=== PATIENT | female | born 1955 | race Caucasian/White ===

== ENCOUNTER 2019-10-24 09:25 | Outpatient (CLI) | payer OTHER, SELFPAY ==
--- NOTE | ~2019-10-24 | US_ITS ---
EXAMINATION: 1. US FNA additional 2. US FNA w image guidance DATE: 10/24/2019 10:59 INDICATION: Nontoxic multinodular goiter. TECHNIQUE: The procedure and its benefits, risks, and benefits were discussed with the patient. Risks specifical ly discussed included bleeding. The patient verbalized understanding of the risks and agreed to proce ed. The neck was prepped and draped in the usual sterile manner. 1% lidocaine was used for local ane sthesia. 5 passes were made with a 25G needle into the lesion in inferior right thyroid lobe. Appro priate needle location was documented with continuous sonographic guidance. 5 passes were made with a 25G needle into the lesion in superior right thyroid lobe. Appropriate nee dle location was documented with continuous sonographic guidance. There were no immediate complicatio ns. The patient understood to call the ordering physician for results after a week and a half and areli balized that understanding. FINDINGS: Grayscale ultrasound images demonstrate needles advanced into a 1.6 cm nodule in inferior right thyro id lobe for biopsy. Grayscale ultrasound images demonstrate needles advanced into a 1.8 cm nodule in superior right thyroid lobe IMPRESSION: 1. Ultrasound-guided fine needle aspiration of a nodule in inferior right thyroid lobe. 2. Ultrasound-guided fine-needle aspiration of a nodule in superior right thyroid lobe. Reviewed, dictated and finalized at location A. IMPRESSION: 1. Ultrasound-guided fine needle aspiration of a nodule in inferior right thyr oid lobe. 2. Ultrasound-guided fine-needle aspiration of a nodule in superior right thyro id lobe.
== END 2019-10-24 09:26 | disposition home or self-care (01) ==
LOC: ANHIMG 09:27
PROVIDERS: PCP Internal Medicine; Visit Provider Internal Medicine
DX: E04.2 Nontoxic multinodular goiter (principal)
CPT/HCPCS: 10005; 10006; 88173; 88305

== ENCOUNTER 2020-01-23 07:05 | Outpatient (NON) | payer OTHER, SELFPAY ==
[2020-01-24 00:19] LABS: SARS-CoV-2 RNA PCR Negative
== END 2020-01-23 07:06 ==
LOC: ANHCOVIDDT 07:21
PROVIDERS: PCP Internal Medicine; Visit Provider Internal Medicine
DX: Z20.828 Contact with and (suspected) exposure to other viral communicable diseases (principal); R09.89 Other specified symptoms and signs involving the circulatory and respiratory systems
CPT/HCPCS: 87635; C9803; U0003

== ENCOUNTER → 2020-10-08 02:53 | Outpatient (CLI) | payer OTHER, SELFPAY ==
[2020-10-08 20:12] LABS: SARS-CoV-2 RNA PCR Negative
== END ==
PROVIDERS: PCP Family Medicine; Visit Provider Family Medicine
DX: R05 Cough (principal); Z20.822 Contact with and (suspected) exposure to COVID-19
CPT/HCPCS: C9803; U0003; U0005

== ENCOUNTER 2021-12-07 12:34 | Emergency (ER) | payer MEDICARE, SELFPAY ==
--- NOTE | ~2021-12-07 | CT_ITS ---
EXAMINATION: CTA chest PE abdomen pel DATE: 12/07/2021 19:12 INDICATION: elevated ddimer, UPPER ABDOMINAL PAIN, ELEVATED LIPASE TECHNIQUE: Computed tomography angiography (CTA) of the chest was performed with 100 mL Omnipaque-350 intravenous contrast timed to evaluate the pulmonary arteries, followed by portal venous phase imagi ng of the abdomen and pelvis. Coronal maximum intensity projection 3D-reconstructions were created by the technologist. The dose-length product (DLP) was 714.15 mGy-cm. Automated exposure control and it erative reconstruction technique were employed. COMPARISON: None. FINDINGS: CHEST: Lung parenchyma and airways: Clear. Pleura: Unremarkable. Thoracic inlet, axillae and chest wall: Unremarkable. Thoracic aorta: Normal. Mediastinum: Normal. Heart and pericardium: Normal. Coronary artery calcifications: Absent. Thoracic bones: No acute osseous finding. Pulmonary arteries: Study quality: Adequate. No pulmonary emboli detected. ABDOMEN/PELVIS: Liver: Diffuse fatty infiltration as can be seen with steatosis.r Biliary/Gallbladder: Gallbladder is normal. No bile duct dilation. Pancreas: No mass or duct dilation. Spleen: Normal. Adrenals:No mass. Kidneys: No mass, stone, or hydronephrosis. GI tract: No small or large bowel dilation. Normal appendix. Diverticulosis without diverticulitis. Mesentery/Peritoneum: No ascites, mass, or free air. Retroperitoneum: No mass. Atherosclerotic abdominal aortic and/or arterial calcifications. Pelvis: Uterus absent. Mild wall thickening in a partially distended urinary bladder. Soft Tissues: Soft tissues and body wall unremarkable. Abdominopelvic bones: No acute osseous finding. IMPRESSION: No CT evidence of acute pulmonary embolus. No CT evidence of pancreatitis. Reviewed, dictated and finalized at location K.
--- NOTE | ~2021-12-07 | CT_ITS ---
EXAMINATION: CT brain wo con DATE: 12/07/2021 16:49 INDICATION: Headache . TECHNIQUE: Computed tomography (CT) of the head was performed without intravenous contrast. The mA wa s adjusted according to patient size. Iterative reconstruction technique was employed. The dose-lengt h product was 605.33 mGy-cm. COMPARISON: None FINDINGS: No acute intracranial hemorrhage or extra-axial fluid collection. No hydrocephalus, mass, or herniation. No acute ischemic infarct. Unremarkable dural venous sinus attenuation. No acute osseous abnormality. The aerated spaces are clear. Mild atrophy and chronic white matter change. Atherosclerotic intracranial calcification. Old left ba alek ganglia lacunar infarct versus prominent perivascular space. IMPRESSION: No acute intracranial process. Reviewed, dictated and finalized at location K.
--- NOTE | ~2021-12-07 | XR_ITS ---
EXAMINATION: XR chest 2V DATE: 12/07/2021 13:10 INDICATION: Central chest pain TECHNIQUE: Frontal and lateral views of the chest are obtained COMPARISON: None available FINDINGS: The lungs are free of acute opacities. No pleural effusion or pneumothorax. The cardiomedia stinal silhouette is normal. There is moderate thoracic spondylosis. IMPRESSION: 1. No acute cardiopulmonary abnormality. Reviewed, dictated and finalized at location A.
--- NOTE | 2021-12-07 12:35 | ECG_ITS ---
Measurements Intervals [place] Rate: 98 P: 39 MI: 148 QRS: -13 QRSD: 107 T: 27 QT: 348 QTc: 445 Interpretive Statements SINUS RHYTHM NORMAL ECG NO PREVIOUS ECG AVAILABLE FOR COMPARISON Electronically Signed On 12-07-2021 13:58:29 CDT by Silas Kennedy M.D.
[2021-12-07 12:45] VITALS: BP 134/72; PULSE 91; RESP 20; TEMP 36.9; O2SAT 100
[2021-12-07 13:09] LABS: Basophils Absolute Auto 0.1 K/mm3 (0.0-0.1); Basophils Percent Auto 0.8 % (0.2-1.2); Eosinophils Absolute Auto 0.2 K/mm3 (0-0.3); Eosinophils Percent Auto 2.6 % (0-4.4); Hematocrit 43.7 % (37.0-47.0); Hemoglobin 14.6 g/dL (12.0-15.0); Immature Granulocyte Absolute 0.07 K/mm3 (0.00-0.031); Immature Granulocyte Percent A 0.8 % (0-0.5); Lymphocytes Absolute Auto 2.69 K/mm3 (0.9-3.2); Lymphocytes Percent Auto 29.6 % (18.3-44.2); Mean Corpuscular HGB Conc 33.4 g/dl (32-36); Mean Corpuscular Hemoglobin 30.2 pg (26-34); Mean Corpuscular Volume 90.5 fl (80-100); Mean Platelet Volume 9.4 fl (7.4-10.4); Monocytes Absolute Auto 0.7 K/mm3 (0.1-0.6); Monocytes Percent Auto 7.6 % (2.6-8.5); Neutrophils Absolute Auto 5.3 K/mm3 (1.3-6.7); Neutrophils Percent Auto 58.6 % (45.5-73.1); Platelet Count Result 331 k/mm3 (150-375); Red Blood Count 4.83 M/mm3 (4.2-5.4); Red Cell Distribution Width 12.6 % (11.5-14.5); White Blood Count 9.1 K/mm3 (4.5-10.0)
[2021-12-07 13:19] LABS: Alanine Aminotransferase 26 U/L (6-35); Albumin Level 4.6 g/dL (3.5-5.1); Alkaline Phosphatase 92 U/L (38-126); Anion Gap 8 mmol/L (8-16); Aspartate Amino Transferase 29 U/L (14-36); Bilirubin,Total 0.3 mg/dL (0.2-1.3); Blood Urea Nitrogen 21 mg/dL (7-17); Calcium 9.2 mg/dL (8.4-10.2); Carbon Dioxide 27 mmol/L (22-30); Chloride 104 mmol/L (98-107); Estimated CRCL calculation 59 ml/min; Estimated Glomerular Filt Rate > 60; Glucose 96 mg/dL (65-110); Lipase 434 U/L (23-300); Partial Thromboplastin Time 31.4 SECONDS (22.3-36.8); Prothrombin Time 12.5 Seconds (11.1-14.7); Sodium 139 mmol/L (137-145)
[2021-12-07 13:31] LABS: Troponin I < 0.012 ng/mL (0.000-0.034)
[2021-12-07 16:08] VITALS: PULSE 84
--- NOTE | 2021-12-07 16:18 | ED.CHESTPAIN ---
HPI - Chest Pain General Chief Complaint: Chest Pain <Jacklyn Antonio MD - Last Filed: 12/07/21 18:59> Stated Complaint: barrios/pain across shoulders/gerd <Jacklyn Antonio MD - Last Filed: 12/07/21 18:59> Time Seen by Provider: 12/07/21 16:12 <Jacklyn Antonio MD - Last Filed: 12/07/21 18:59> Source: patient and RN notes reviewed <Jacklyn Antonio MD - Last Filed: 12/07/21 18:59> Mode of arrival: ambulatory <Jacklyn Antonio MD - Last Filed: 12/07/21 18:59> Limitations: no limitations <Jacklyn Antonio MD - Last Filed: 12/07/21 18:59> History of Present Illness HPI narrative: 66 years old white female brought to the emergency room by private car from home complaining of headache, dizziness, upper back pain and upper chest pain bilaterally, hard to breathe sometime, today even moving her eyes make her feel off.. Patient retired in June 2021, been playing [employer] and [employer] lately. History of breast cancer. Patient is a smoker, drinks occasionally, does not use drugs <Jacklyn Antonio MD - Last Filed: 12/07/21 18:59> Related Data Home Medications: Home Medications Medication Instructions Recorded Confirmed aspirin 81 mg tablet,delayed 81 mg PO DAILY 08/11/20 08/11/20 release (Adult Low Dose Aspirin) esomeprazole magnesium 40 mg 40 mg PO DAILY 08/11/20 08/11/20 capsule,delayed release (Nexium) multivitamin 1 tablet PO DAILY 08/11/20 08/11/20 <Jacklyn Antonio MD - Last Filed: 12/07/21 18:59> Allergies/Adverse Reactions: Allergies Allergy/AdvReac Type Severity Reaction Status Date / Time No Known Allergies Allergy Verified 08/11/20 08:45 <Jacklyn Antonio MD - Last Filed: 12/07/21 18:59> Review of Systems Review of Systems: All systems reviewed & are unremarkable except as noted in HPI and below <aJcklyn Antonio MD - Last Filed: 12/07/21 18:59> PMFSH Past Medical History Medical History: Medical History Anxiety Degenerative disc disease, cervical GERD (gastroesophageal reflux disease) Malignant neoplasm of upper-outer quadrant of right breast, estrogen receptor positive Multinodular goiter <Jacklyn Antonio MD - Last Filed: 12/07/21 18:59> Surgical History Surgical History: Surgical History H/O foot surgery both feet bone spurs H/O lumpectomy 2011 S/P BRETT-BSO <Jacklyn Antonio MD - Last Filed: 12/07/21 18:59> Family History Family History: Family History Mother Family history of blood dyscrasia Hypertension Family history of anemia Family history of Alzheimer's disease Family history of lung disease Father Family history of drug dependence Depression Family history of cataracts Malignant neoplasm of prostate Family history of diabetes mellitus in first degree relative Diabetes mellitus Hypertension Heart disease Sibling Depression Heart disease Alcoholism Other Family history of chronic obstructive pulmonary disease Family history of coronary artery disease <Jacklyn Antonio MD - Last Filed: 12/07/21 18:59> Social History Social History: Social History Smoking status: Current every day smoker Second hand tobacco smoke exposure: Yes Alcohol intake: current Alcohol use details: socially/beer Substance use: never Substance use type: does not use Gender identity (if verbalized by the patient): Female Spiritual care concerns: No Agree to blood products: Yes <Jacklyn Antonio MD - Last Filed: 12/07/21 18:59> Exam Narrative: General appearance: Well-developed, well-nourished Skin: Normal color Head: Normocephalic, nontraumatic Eyes: Clear conjunctiva ENT: Oropharynx normal, ears normal, nose normal Neck: Supple, nontender Chest and respiratory: Airway patent, no respiratory distress,
[2021-12-07 16:36] LABS: Troponin I < 0.012 ng/mL (0.000-0.034)
--- NOTE | 2021-12-07 16:56 | PCRCNOTE ---
Patient refused MD AMBER notified.
[2021-12-07 17:17] LABS: Creatine Kinase 161 U/L (30-135)
[2021-12-07 17:50] VITALS: BP 138/90; PULSE 78; RESP 16; O2SAT 98
--- NOTE | 2021-12-07 17:55 | PC.NURSE ---
no aspirin dose needed per erp
[2021-12-07 18:01] LABS: Erythrocyte Sedimentation Rate 30 mm/hr (0-20)
[2021-12-07 18:09] LABS: D Dimer 0.55 ug/mL (<0.48)
[2021-12-07 18:55] LABS: Troponin I < 0.012 ng/mL (0.000-0.034)
[2021-12-07 19:22] LABS: SARS-CoV-2 RNA PCR Negative
[2021-12-07 19:58] VITALS: BP 128/79; PULSE 84; RESP 18; O2SAT 97
== END 2021-12-07 20:06 | disposition home or self-care (01) ==
PROVIDERS: Emergency Medicine; Emergency Provider Preventive Medicine Aerospace Medicine
DX: R51.9 Headache, unspecified (principal); M54.6 Pain in thoracic spine; R74.8 Abnormal levels of other serum enzymes; Z20.822 Contact with and (suspected) exposure to COVID-19; K21.9 Gastro-esophageal reflux disease without esophagitis; Z85.3 Personal history of malignant neoplasm of breast; Z79.82 Long term (current) use of aspirin; F17.200 Nicotine dependence, unspecified, uncomplicated; R07.9 Chest pain, unspecified
CPT/HCPCS: 36415; 70450; 71046; 71275; 74177; 80053; 82550; 83690; 84484; 85025; 85380; 85610; 85652; 85730; 93005; 99284; C9803; Q9967; U0003; U0005

== ENCOUNTER → 2022-02-08 09:52 | Outpatient (CLI) | payer MEDICARE, SELFPAY ==
--- NOTE | ~2022-02-08 | MR_ITS ---
MRI of the cervical spine Clinical History: Pain Technique: Axial T2-weighted and gradient images, and sagittal T1-weighted, T2-weighted, and STIR toñito ges were acquired. Findings: There is no fracture or subluxation of the cervical spine. Vertebral bodies maintain normal height and alignment. No focal bone marrow signal abnormality seen. At C2-C3 and C3-C4, there is no disc bulge or herniation. No spinal canal stenosis, cord compression, or neural foraminal narrowing at these levels. At C4-C5, there is no disc bulge or herniation. There is probable minimal left neural foraminal narro wing. No spinal canal stenosis, cord compression, or right neural foraminal narrowing. At C5-C6, there is minimal disc osteophyte complex. There is no spinal canal stenosis, cord compressi on, or definite neural foraminal narrowing. At C6-C7, there is minimal disc osteophyte complex. No spinal canal stenosis, cord compression, or de finite neural foraminal narrowing. Paravertebral soft tissues are unremarkable. No prevertebral soft tissue swelling. No abnormal signal in the spinal cord. Impression: Minimal degenerative change, as above. Probable minimal left neural foraminal narrowing at C4-C5. Reviewed, dictated and finalized at location . GER [employer] HOU[employer]KEEPING Impression: Minimal degenerative change, as above. Probable minimal left neural foraminal n arrowing at C4-C5.
== END ==
PROVIDERS: PCP Family Medicine; Visit Provider Nurse Practitioner Adult Health
DX: M54.2 Cervicalgia (principal)
CPT/HCPCS: 72141

== ENCOUNTER 2022-03-16 12:13 | Outpatient (CLI) | payer MEDICARE, SELFPAY ==
--- NOTE | ~2022-03-16 | US_ITS ---
Duplex Sonography of the right extremity: Indication: Soft tissue disorder, swelling Findings: Sagittal and transverse B-mode images as well as color-flow imaging were performed on the r ight femoral and popliteal veins. B-mode examination was done without and with compression in the tr ansverse plane. There is good visualization of the common femoral, proximal profunda femoral, superf icial femoral, greater saphenous, and popliteal veins. Normal flow was seen on color-flow imaging. N ormal compressibility was demonstrated. Posterior tibial and peroneal veins are also patent. Impression: No evidence of deep vein thrombosis involving the right lower extremity. Reviewed, dictated and finalized at location M. D ENGINEERING TECHNICIAN Impression: No evidence of deep vein thrombosis involving the right lower extremity.
== END 2022-03-16 12:14 | disposition home or self-care (01) ==
PROVIDERS: PCP Family Medicine; Visit Provider Physician Assistant Medical
DX: M79.89 Other specified soft tissue disorders (principal)
CPT/HCPCS: 93971

== ENCOUNTER → 2022-03-21 09:29 | Outpatient (CLI) | payer MEDICARE, SELFPAY ==
--- NOTE | ~2022-03-21 | US_ITS ---
EXAMINATION: US thyroid DATE: 03/21/2022 09:48 INDICATION: Nontoxic single thyroid nodule. TECHNIQUE: Multiple ultrasound images of the thyroid were obtained. COMPARISON: Ultrasound 10/13/2019, 10/24/2019 FINDINGS: The right thyroid lobe measures 5.8 x 2.5 x 2.2 cm. The left thyroid lobe measures 4.6 x 1.7 x 1.6 c m. In the left thyroid lobe, there is an 8 mm solid, hypoechoic, wider than tall nodule with irregul ar margin without echogenic foci (TI-RADS TR4). In the left thyroid lobe, there is a 5 mm solid, hypo echoic, wider than tall nodule with smooth margin without echogenic foci (TR4). In the right thyroid lobe, there is a 1.5 cm solid, hypoechoic, wider than tall nodule with irregular margin without echog enic foci (TR4), stable from 10/13/19. In the right thyroid lobe, there is a 1.8 cm solid, hypoechoic, wider than tall nodule with smooth margin without echogenic foci (TR4), stable from 10/13/19. Biopsy on 10/24/19 was benign. In the right thyroid lobe, there is a 1.9 cm predominance solid, hypoechoic, wi paloma than tall nodule with smooth margin without echogenic foci (TR4), stable from 10/13/19. Biopsy on 10/24/19 was benign. IMPRESSION: 1. Stable multinodular goiter. Reviewed, dictated and finalized at location A. S GLAZIER
== END ==
PROVIDERS: PCP Family Medicine; Visit Provider Physician Assistant Medical
DX: E04.2 Nontoxic multinodular goiter (principal)
CPT/HCPCS: 76536

== ENCOUNTER 2022-03-27 07:44 | Day surgery (SDC) | payer MEDICARE, SELFPAY ==
[2022-03-14 09:33] VITALS: BMI 29.2
--- NOTE | 2022-03-24 14:22 | PM.HPGS ---
History of Present Illness History of Present Illness Consent: Risks, benefits, and alternatives have been discussed and questions answered. Patient agrees to proceed with procedure. Chief complaint: Mart's Esophagus, Neoplasm Screening Narrative: Digna Healy is a 66 year old female with history of Mart's esophagus. She underwent RFA in 2013. A follow up several months later showed no residual Mart's mucosa. Is due for colon cancer screen. Review of Systems Review of Systems: All systems reviewed & are unremarkable except as noted in HPI and below PMFSH Past Medical History Medical History (Updated 03/27/22 @ 08:49 by Seth Benjamin MD) Anxiety Mart's esophagus with dysplasia Cervical spondylosis Cervical spondylosis Contact dermatitis Degenerative disc disease, cervical GERD (gastroesophageal reflux disease) Malignant neoplasm of upper-outer quadrant of right breast, estrogen receptor positive Multinodular goiter Neck pain Rash Surgical History Surgical History H/O foot surgery both feet bone spurs H/O lumpectomy 2011 S/P BRETT-BSO Family History Family History Mother Family history of blood dyscrasia Hypertension Family history of anemia Family history of Alzheimer's disease Family history of lung disease Father Family history of drug dependence Depression Family history of cataracts Malignant neoplasm of prostate Family history of diabetes mellitus in first degree relative Diabetes mellitus Hypertension Heart disease Sibling Depression Heart disease Alcoholism Other Family history of chronic obstructive pulmonary disease Family history of coronary artery disease Social History Social History Smoking packs per day: 0.5 Smoking cigarettes per day: 10.0 Years smoked: 30 Smoking pack-years: 15.00 Smoking status: Current every day smoker Tobacco type: cigarettes Second hand tobacco smoke exposure: Yes Alcohol intake: current Alcohol use details: socially/beer Substance use: never Substance use type: does not use Living arrangements: alone Occupation/Education: retired Gender identity (if verbalized by the patient): Female Sexual Orientation (if Verbalized by the Patient): Straight or Heterosexual Spiritual care concerns: No Agree to blood products: Yes Meds Home Medications and Allergies Home Medications Medication Instructions Recorded Confirmed Type esomeprazole magnesium 40 mg 40 mg PO DAILY 08/11/20 03/27/22 History capsule,delayed release (Nexium) multivitamin 1 tablet PO DAILY 08/11/20 03/27/22 History aspirin 81 mg tablet,delayed 81 mg PO DAILY 03/14/22 03/27/22 History release (Adult Low Dose Aspirin) multivit,Ca,iron,[id number]-[id number]-RPWN 1 cap PO DAILY 03/14/22 03/27/22 History 3 mg-133 mcg capsule (Body, Hair, Skin and Nails) omega 3-dha 120 mg-epa 180 mg-fish 1 cap PO DAILY 03/14/22 03/27/22 History oil 600 mg capsule (Extreme [place]-3) citalopram 40 mg tablet 40 mg PO DAILY #90 tabs 03/16/22 03/27/22 Rx furosemide 20 mg tablet 20 mg PO QAM #7 tabs 03/16/22 03/27/22 Rx varenicline 1 mg tablet (Chantix 1 mg PO BID #56 tabs 03/16/22 03/27/22 Rx Continuing Month Box) Allergies Allergy/AdvReac Type Severity Reaction Status Date / Time No Known Allergies Allergy Verified 03/27/22 08:06 Exam Const: General: alert Orientation/consciousness: patient oriented x3 Resp: Auscultation: clear to auscultation bilaterally Cardio: Rhythm: regular rhythm GI: GI Palp: Yes Soft to palpation and No Tenderness to palpation present (GI) Neuro: General: patient oriented x3 Assessment and Plan Assessment and plan (1) Mart's esophagus with dysplasia: Code(s): K22.719 - Mart's esophagus with dys
--- NOTE | 2022-03-27 07:19 | WPDANESEPPF ---
Anes - Initial Pre Proc Eval Procedure: Operation Date: 03/27/22 09:30 Proposed Procedures p Esophagogastroduodenoscopy - Seth Benjamin MD s Screening Colonoscopy - Seth Benjamin MD Date/Time: 03/27/22 07:19 Surgeon: Seth Benjamin MD Pre Op Diagnosis: Mart's Esophagus, Neoplasm Screening Patient Data Age: 66 Gender: F Height: 1.52 m Weight: 68 kg Allergies Allergy/AdvReac Type Severity Reaction Status Date / Time No Known Allergies Allergy Verified 03/27/22 08:06 Home Medications Medication Instructions Recorded Confirmed Type esomeprazole magnesium 40 mg 40 mg PO DAILY 08/11/20 03/14/22 History capsule,delayed release (Nexium) multivitamin 1 tablet PO DAILY 08/11/20 03/14/22 History aspirin 81 mg tablet,delayed 81 mg PO DAILY 03/14/22 03/14/22 History release (Adult Low Dose Aspirin) multivit,Ca,iron,[id number]-PDXA 1 cap PO DAILY 03/14/22 03/14/22 History 3 mg-133 mcg capsule (Body, Hair, Skin and Nails) omega 3-dha 120 mg-epa 180 mg-fish 1 cap PO DAILY 03/14/22 03/14/22 History oil 600 mg capsule (Extreme [place]-3) citalopram 40 mg tablet 40 mg PO DAILY #90 tabs 03/16/22 Rx furosemide 20 mg tablet 20 mg PO QAM #7 tabs 03/16/22 Rx varenicline 1 mg tablet (Chantix 1 mg PO BID #56 tabs 03/16/22 Rx Continuing Month Box) Patient hx anesthesia problems: none Family hx anesthesia problems: none Results Review: All pre-operative results and documents have been reviewed as part of the pre-operative evaluation. [facility] Past Medical History Medical History (Updated 03/27/22 @ 08:49 by Steh Benjamin MD) Anxiety Mart's esophagus with dysplasia Cervical spondylosis Cervical spondylosis Contact dermatitis Degenerative disc disease, cervical GERD (gastroesophageal reflux disease) Malignant neoplasm of upper-outer quadrant of right breast, estrogen receptor positive Multinodular goiter Neck pain Rash Surgical History Surgical History H/O foot surgery both feet bone spurs H/O lumpectomy 2011 S/P BRETT-BSO Family History Family History Mother Family history of blood dyscrasia Hypertension Family history of anemia Family history of Alzheimer's disease Family history of lung disease Father Family history of drug dependence Depression Family history of cataracts Malignant neoplasm of prostate Family history of diabetes mellitus in first degree relative Diabetes mellitus Hypertension Heart disease Sibling Depression Heart disease Alcoholism Other Family history of chronic obstructive pulmonary disease Family history of coronary artery disease Social History Social History Smoking packs per day: 0.5 Smoking cigarettes per day: 10.0 Years smoked: 30 Smoking pack-years: 15.00 Smoking status: Current every day smoker Tobacco type: cigarettes Second hand tobacco smoke exposure: Yes Alcohol intake: current Alcohol use details: socially/beer Substance use: never Substance use type: does not use Living arrangements: alone Occupation/Education: retired Gender identity (if verbalized by the patient): Female Sexual Orientation (if Verbalized by the Patient): Straight or Heterosexual Spiritual care concerns: No Agree to blood products: Yes Anes - Eval Final PreProcedure Day of Procedure 03/27/22 07:19 Patient weight: overweight Heart: regular rate and rhythm Lungs: clear to auscultation Airway: Mallampati scale class II Neurological: alert and oriented Last oral intake: >/= 8 hours ASA classification: III Emergent: no Anesthetic plan: proceed Anesthesia type and monitoring: general GIVS and standard monitoring Results Review: All pre-operative results and documents have been reviewed as part of the pre-operati
[2022-03-27 08:00] VITALS: BP 118/68; PULSE 98; RESP 14; TEMP 36.4; O2SAT 99
[2022-03-27] MEDS: LACTATED RINGERS 1,000 ML 150 ML IV CONT (08:25)
[2022-03-27 09:48] VITALS: BP 110/80; PULSE 79; RESP 14; O2SAT 99
[2022-03-27 09:58] VITALS: BP 104/63; PULSE 80; RESP 16; O2SAT 99
[2022-03-27 10:08] VITALS: BP 115/70; PULSE 79; RESP 18; O2SAT 98
[2022-03-27 10:17] VITALS: BP 116/68; PULSE 79; RESP 18; O2SAT 99
--- NOTE | 2022-03-27 12:03 | WPDANESPN ---
Anes - Prog Note Post-Op Date/Time: 03/27/22 12:03 Cardiovascular status: normal Respiratory status: normal Airway patency: baseline Mental status: baseline Post-Op hydration status: normal Vital Signs: Last Vital Signs Temp 36.4 C 03/27/22 08:00 Pulse 79 03/27/22 10:17 Resp 18 03/27/22 10:17 BP 116/68 03/27/22 10:17 Pulse Ox 99 03/27/22 10:17 O2 Del Method Room Air 03/27/22 10:17 Pain Score (VAS): 0 I/O: Intake & Output 03/26/22 03/27/22 03/27/22 23:59 07:59 15:59 Intake Total 600 Balance 600 Post-procedural complaints: none Patient Feedback: Patient satisfied with anesthetic care. Other Findings: Patient vital signs back to baseline. Patient denies nausea and vomiting. Patient's pain under control. Patient OK for discharge.
== END 2022-03-27 10:41 | disposition home or self-care (01) ==
PROVIDERS: PCP Family Medicine; Visit Provider Internal Medicine Gastroenterology
PROC: 0DJ08ZZ Inspection of Upper Intestinal Tract, Via Natural or Artificial Opening Endoscopic (ICD-10-PCS; CPT 43235; principal; 2022-03-27 09:30)
PROC: 0DJD8ZZ Inspection of Lower Intestinal Tract, Via Natural or Artificial Opening Endoscopic (ICD-10-PCS; CPT 45378; 2022-03-27 09:30)
DX: Z12.11 Encounter for screening for malignant neoplasm of colon (principal)
CPT/HCPCS: 45380; 43239

== ENCOUNTER 2022-03-27 09:00 | Outpatient (NON) | payer MEDICARE, SELFPAY | END 2022-03-27 09:01 | disposition home or self-care (01) | LOC: ANHLAB 03-28 09:44 | PROVIDERS: PCP Family Medicine; Visit Provider Internal Medicine Gastroenterology | DX: K22.719 Barrett's esophagus with dysplasia, unspecified (principal) | CPT/HCPCS: 88305 ==

== ENCOUNTER → 2022-09-20 14:18 | Outpatient (CLI) | payer MEDICARE, SELFPAY ==
--- NOTE | ~2022-09-20 | MM_ITS ---
EXAMINATION: MM screening [facility] BI w niall HISTORY: Screening mammogram TECHNIQUE: Craniocaudal and mediolateral oblique 3-D tomosynthesis images were obtained and synthetic 2-D images were generated. CAD analysis was submitted and interpreted. COMPARISON: No prior mammogram is available for comparison at this institution. BREAST PARENCHYMAL COMPOSITION: There are scattered areas of fibroglandular density. FINDINGS: There is architectural distortion and retraction at the upper outer left breast likely rela dilma to history of partial left mastectomy for breast cancer. No prior radiographs are available for c omparison. Otherwise no suspicious mass, architectural distortion, microcalcifications, skin thickeni ng or retraction is noted. IMPRESSION: 1. Status post left partial mastectomy with residual scarring retraction, upper outer quadrant. No ma mmographic evidence of malignancy. 2. Recommend routine screening mammography in one year. BI-RADS Category 2: Benign finding(s). Reviewed, dictated and finalized at location A. IMPRESSION: 1. Status post left partial mastectomy with residual scarring retraction, upper outer quadrant. No mammographic evidence of malignancy. 2. Recommend routine screening mammography in one year. BI-RADS Category 2: Benign finding(s).
== END ==
PROVIDERS: PCP Physician Assistant Medical; Visit Provider Physician Assistant Medical
DX: Z12.31 Encounter for screening mammogram for malignant neoplasm of breast (principal); Z85.3 Personal history of malignant neoplasm of breast; Z90.12 Acquired absence of left breast and nipple
CPT/HCPCS: 77063; 77067

== ENCOUNTER 2023-04-12 09:48 | Outpatient (CLI) | payer MEDICARE, SELFPAY ==
--- NOTE | ~2023-04-12 | CT_ITS ---
CT Scan of the Chest without Contrast: Clinical Indication: Lung cancer screening, personal history of nicotine dependence Technique: Contiguous sections were acquired throughout the chest without intravenous contrast. Dose reduction technique was used on this scan by utilizing automated exposure control and iterative recon struction technique. The dose-length product (DLP) was 96.63 mGy-cm. COMPARISON: 12/07/2021 Findings: There is no evidence of any significant mediastinal, hilar or axillary lymphadenopathy. The mediastin al soft tissues appear normal. There is no evidence of pleural or pericardial effusion. 5 mm groundglass nodule in the right lower lobe is similar to prior exam. Images through the upper abdomen reveal diffuse fatty infiltration of the liver. Impression: Lung RADS 2: Benign appearance. 12 month follow-up screening CT advised. Reviewed, dictated and finalized at [facility]. TER ENGINEERING Impression: Lung RADS 2: Benign appearance. 12 month follow-up screening CT advised.
== END 2023-04-12 09:49 | disposition home or self-care (01) ==
PROVIDERS: PCP Physician Assistant Medical; Visit Provider Physician Assistant Medical
DX: Z12.2 Encounter for screening for malignant neoplasm of respiratory organs (principal); Z87.891 Personal history of nicotine dependence
CPT/HCPCS: 71271

== ENCOUNTER 2023-04-25 14:19 | Outpatient (CLI) | payer MEDICARE, SELFPAY ==
--- NOTE | ~2023-04-25 | DEXA_ITS ---
Bone Density Report Name: TATIANA HAHN Age: 67 Sex: Female Ethnicity: White Date of : 1955 Indication: postmenopausal; screening for osteoporosis; hysterectomy; Referring Provider: TOSIN BAXTER Study: Bone densitometry was performed. Exam Date: April 25, 2023 Accession number: [id number] Bone Density: Region BMD T-score Z-score Classification AP Spine (L1-L4) 0.809 -2.2 -0.3 Osteopenia Femoral Neck (Left) 0.588 -2.4 -0.8 Osteopenia Total Hip (Left) 0.713 -1.9 -0.6 Osteopenia Femoral Neck (Right) 0.590 -2.3 -0.7 Osteopenia Total Hip (Right) 0.735 -1.7 -0.4 Osteopenia Total Hip Mean 0.724 -1.8 -0.5 Osteopenia World Health Organization criteria for BMD impression classify patients as: Normal (T-score at or above -1.0), Osteopenia (T-score between -1.0 and -2.5), or Osteoporosis (T-score at or below -2.5). 10-year Fracture Risk(1): Major Osteoporotic Fracture 13% Hip Fracture 3.9% Reported Risk Factors: [place] (), Neck BMD=0.588, BMI=31.2, smoking (1) FRAX(R) Version 3.08. Fracture probability calculated for an untreated patient. Fracture probability may be lower if the patient has received treatment. Clinical Information Provided by Patient: Smokes Has the following medical conditions: Hysterectomy, breast cancer 2011 Patient maximum height was 60.13 Menopause Age: 48 Does not regularly consume dairy products Drinks caffeinated beverages Onset of menses at age 11 Number of children 2 Impression: The patient has low bone mass, based on the Left Femoral Neck T-score. The patient has an estimated ten-year risk of hip fracture of 3.9% and an estimated ten-year risk of major fracture of 13%, based on the WHO FRAX algorithm. The patient has risk factors, including: smoking. Discussion: BONE DENSITY IS LOW AT ONE OR MORE SKELETAL SITES. THE PATIENT'S BMD AND CLINICAL RISK FACTORS CONTRIBUTE TO THIS PATIENT'S INCREASED RISK OF FRACTURE. This patient's lowest T-score is low at one or more skeletal sites. It meets the World Health Organization's (WHO) criteria for ?low bone mass? (T-score between -1.0 and -2.5). The patient's 10-year risk of hip fracture as calculated by FRAX exceeds the threshold where pharmacological therapy is recommended by the National Osteoporosis Foundation (NOF). However, all treatment decisions require clinical judgment and consideration of individual patient factors, including patient preferences, comorbidities, previous drug use, risk factors not captured in the FRAX model (e.g., frailty, falls, vitamin D deficiency, increased bone turnover, interval significant decline in bone density) and possible under or overestimation of fracture risk by FRAX. The patient should follow a healthful lifestyle (good nutrition with adequate calcium and vitamin D, a
== END 2023-04-25 14:20 ==
LOC: MICIMG 14:20
PROVIDERS: PCP Physician Assistant Medical; Visit Provider Physician Assistant Medical
DX: E28.39 Other primary ovarian failure (principal); M85.89 Other specified disorders of bone density and structure, multiple sites; Z78.0 Asymptomatic menopausal state
CPT/HCPCS: 77080

== ENCOUNTER 2023-09-24 13:59 | Outpatient (CLI) | payer MEDICARE, SELFPAY ==
--- NOTE | ~2023-09-24 | MR_ITS ---
EXAMINATION: MRA neck wo/w con DATE: 09/24/2023 15:15 INDICATION: Dizziness and giddiness. TECHNIQUE: Magnetic resonance angiography (MRA) of the neck was performed without and with 14 mL Mult iHance intravenous contrast. COMPARISON: None. FINDINGS: The vertebral arteries are codominant. The vertebral arteries are not well evaluated proximally. Ther e is no significant stenosis of the vertebral arteries. There is 0% stenosis of the proximal right in ternal carotid artery relative to normal distal artery lumen diameter (NASCET criteria). There is 0% stenosis of the proximal left internal carotid artery relative to normal distal artery lumen diamete r. IMPRESSION: 1. 0% stenosis of the proximal internal carotid arteries relative to normal distal artery lumen diame ters (NASCET criteria). Reviewed, dictated and finalized at location A. IMPRESSION: 1. 0% stenosis of the proximal internal carotid arteries relative to normal dis mariya artery lumen diameters (NASCET criteria).
--- NOTE | ~2023-09-24 | MR_ITS ---
EXAMINATION: MR brain/brain stem wo/w con DATE: 09/24/2023 15:11 INDICATION: Dizziness and giddiness. TECHNIQUE: Magnetic resonance imaging (MRI) of the brain and brainstem was performed without and with 14 mL MultiHance intravenous contrast. COMPARISON: None. FINDINGS: There are scattered areas of nonspecific increased T2-weighted signal intensity in the cere bral white matter. There is no intracranial hemorrhage, acute infarction, or abnormal intracranial ma ss lesion. The ventricles are normal in size. The paranasal sinuses are clear. There are likely ng es of ocular lens replacement surgeries. The mastoid air cells are normal. IMPRESSION: 1. Mild nonspecific cerebral white matter disease, which likely represents chronic small vessel ische aubrie disease. Reviewed, dictated and finalized at location A. IMPRESSION: 1. Mild nonspecific cerebral white matter disease, which likely represents form coverer blanca small vessel ischemic disease.
== END 2023-09-24 14:00 ==
LOC: MICIMG 14:00
PROVIDERS: PCP Physician Assistant Medical; Visit Provider Physician Assistant Medical
DX: R42 Dizziness and giddiness (principal); R20.2 Paresthesia of skin; R51.9 Headache, unspecified
CPT/HCPCS: 70549; 70553; A9577

== ENCOUNTER 2024-01-21 14:37 | Outpatient (CLI) | payer MEDICARE, SELFPAY ==
--- NOTE | ~2024-01-21 | MM_ITS ---
EXAMINATION: MM screening [facility] BI w niall HISTORY: Screening TECHNIQUE: Craniocaudal and mediolateral oblique 3-D tomosynthesis images were obtained and synthetic 2-D images were generated. CAD analysis was submitted and interpreted. COMPARISON: 09/20/2022 BREAST PARENCHYMAL COMPOSITION: Not dense: There are scattered areas of fibroglandular density. FINDINGS: There is distortion in the left breast consistent with previous lumpectomy. There is no anthony dence of suspicious mass, calcification, or architectural distortion to suggest malignancy in either breast. There has been no suspicious interval change. IMPRESSION: 1. No mammographic evidence of malignancy. 2. Recommend routine screening mammography in one year. BI-RADS Category 2: Benign finding(s). Reviewed, dictated and finalized at location B. SFORMATION LEAD
== END 2024-01-21 14:38 | disposition home or self-care (01) ==
LOC: MICIMG 14:38
PROVIDERS: PCP Physician Assistant Medical; Visit Provider Physician Assistant Medical
DX: Z12.31 Encounter for screening mammogram for malignant neoplasm of breast (principal)
CPT/HCPCS: 77063; 77067

== ENCOUNTER 2024-04-14 10:00 | Outpatient (CLI) | payer MEDICARE, SELFPAY ==
--- NOTE | ~2024-04-14 | CT_ITS ---
CT Scan of the Chest without Contrast: Clinical Indication: Lung cancer screening, nicotine dependence Technique: Contiguous sections were acquired throughout the chest without intravenous contrast. Dose reduction technique was used on this scan by utilizing automated exposure control and iterative recon struction technique. The dose-length product (DLP) was 72.94 mGy-cm. COMPARISON: 04/12/2023 Findings: There is no evidence of any significant mediastinal, hilar or axillary lymphadenopathy. The mediastin al soft tissues appear normal. There is no evidence of pleural or pericardial effusion. 9 mm groundglass nodule in the right lower lobe is mildly increased from prior exam (axial image 49). Images through the upper abdomen reveal diffuse fatty infiltration of the liver. Impression: Lung RADS 2: Benign appearance. 12 month follow-up screening CT advised. Reviewed, dictated and finalized at [facility]. S DEVELOPMENT DIRECTOR Impression: Lung RADS 2: Benign appearance. 12 month follow-up screening CT advised.
--- OUTSIDE RECORDS SUMMARY | 2024-04-14 11:10 | XMS_ITS | Clinical Summary ---
Author Organization [facility] [place] Address [address] [place] [address] Phone Care Team Providers Care Dryer Operator Name Role Phone Jay Peraza MD Primary Care Provider Allergies Active Allergy Reactions Criticality Noted Date Comments Nickel Swelling,Other (See Comments) Low 01/29/2020 Sulfamethoxazole-Trimethop rim Itching,Other (See Comments) Low 01/29/2020 Medications esomeprazole (NEXIUM) 40 mg Oral CpDRIndications: Abnormal mammogram,Breast mass Take 40 mg by mouth daily before breakfast. Active aspirin (HAROON) 81 mg Oral TabIndications:A bnormal mammogram,Breast mass Take by mouth. Active citalopram (CELEXA) 20 mg Oral tablet Take 1 Tab by mouth daily. Active MULTIVIT &MINERALS/FERROU S FUM (MULTI VITAMIN ORAL)Indications :Breast cancer, left (CMS/HCC),Aromat ase inhibitor-associ ated arthralgia,Osteo penia Take by mouth. Active varenicline (Chantix) 1 mg Tablet Take 1 mg by mouth. 10/22/2019 Active Active Problems Patient Care Coordination No te Formatting of this note migh t be different from the original. Primary Care: Jay Peraza MD Referring Provider: Divine Culp MD [address] [place] [address] Other: Problem Noted Date Diagnosed Date Open wound of left breast 01/29/2020 Abscess of left breast 01/08/2020 Abnormality of right breast on screening mammogr am 01/08/2020 S/P BRETT-BSO 12/04/2011 Overview (12/04/2011): Fibroids Breast cancer Stage I ( T1c N0 Mx) IDC LEFT breast ER 8/8 TN 8/8 HER2/israel - Ki67 21% 10/11/2011 Overview (12/06/2012): 10/06/11 Stage I ( T1c N0 Mx) IDC LEFT breast ER 8/8 TN 8/8 HER2/israel - Ki67 21% S/p lumpectomy and SLND 1.6CM AND 0.4CM grade 2 0;3LN ONCOTYPE 8% (Recurrence Score 12) S/p Radiation (brachy) 12/04/11 FEMARA Assessment & Plan (12/06/2012 9:25 AM CDT): mammo and dexa today 1 years out Joint pain On ai Assessment & Plan (06/05/2012 3:06 PM CDT): On AI ROV 6 months mammo Oct BMD never - order Assessment & Plan (12/04/2011 9:19 AM CDT): POSTmeno BRETT/BSo IOV with daughter Chiara Abn mammo seeign Cory today for f/u FEMARA today Oncotype Weds BMD ordered ([facility]) Acid reflux Bulging disc Mart esophagus Family History Medical History Relation Name Comments Healthy Daughter Prostate Cancer Father 79 age 79y Colon Cancer Maternal Aunt 1 Breast Cancer Maternal Aunt 2 b/l mast Breast Cancer Maternal Cousin 1 dx 2011 b/l mast Breast Cancer Maternal Cousin 2 dx in her early 30's Breast Cancer Maternal Cousin 3 dx in her 30's Breast Cancer Maternal Cousin 4 Breast Cancer Maternal Cousin 5 Pancreatic Cancer Maternal Uncle COPD Mother dementia alive age 87y Dementia Mother dementia Healthy Son Ovarian Cancer Neg Hx Relation Name Status Comments Daughter Alive Father 79 Maternal Aunt 1 Maternal Aunt 2 Maternal Cousin 1 dx 2011 Maternal Cousin 2 Maternal Cousin 3 Maternal Cousin 4 Maternal Cousin 5 Maternal Uncle Mother dementia Alive Son Alive Social History Tobacco Use Types Packs/Day Years Used Date Smoking Tobacco: Every Day Cigarettes 1 40 Started: 11/20/1971; Last attempted to quit: 11/20/2011 Smokeless Tobacco: Never Tobacco Cessation:Counseling Given: No Alcohol Use Standard Drinks/Week Comments Yes 0 (1 standard drink = 0.6 oz pur e alcohol) rare Comments No Sex and Gender Information Value Date Recorded Sex Assigned at Not on file Legal Sex Female 6:10 AM FINISHER DENTURE Gender Identity Not on file Sexual Orientation Not on file 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 on file Not on file Last Filed Vital Signs Vital Sign Reading Time Taken Comments Blood Pressure 108/68 01/04/2021 11:50 AM FINISHER DENTURE Pulse 95 01/30/2020 6:11 PM FINISHER DENTURE Temperature 36.4 C (97.5 F) 01/30/2020 6:11 PM FINISHER DENTURE Respiratory Rate 16 01/30/2020 6:11 PM FINISHER DENTURE Oxygen Saturation 94% 01/30/2020 6:11 PM FINISHER DENTURE Inhaled Oxygen Concentration - - Weight 68.5 kg (151 lb) 01/04/2021 11:50 AM FINISHER DENTURE Height 152.4 cm (5') 01/04/2021 11:50 AM FINISHER DENTURE Body Mass Index 29.49 01/04/2021 11:50 AM FINISHER DENTURE Plan of Treatment Health Maintenance Due Date Last Done Comments DTAP/TDAP/TD VACCINES (1 - Tdap) 10/25/1975 PNEUMOCOCCAL VACCINE 65+ YEA RS (1 of 2 - PCV) 10/25/1975 COLORECTAL SCREENING 2001 Colorectal Cancer Screening 2001 FIT-DNA Q 3 years 2001 FIT/FOBT Q 1 year 2001 Flex Sig/CT Colonography Q 5 years 2001 ZOSTER VACCINE (1 of 2) 2006 BREAST CANCER SCREENING 01/04/2022 01/05/20 21, 01/08/2020, 01/27/2015, Additional history exists INFLUENZA VACCINE (#1) 2023 RSV VACCINE (60+ or ) (1 - 1-dose 75+ series) 10/25/2031 OSTEOPOROSIS SCREENING Completed 12/06/2012 Medical Devices Implanted Type Area Court Collections Officer Device Identifier Shelf Expiration Date Model / Serial / Lot Hemostatic Surgicel 2x14in 1949 - [id number] Implanted:Qty : 1 on 01/30/2020 by Julia Lawler MD at [facility] Left: Breast [employer] [id number] 04/18/20241950 / [id number] Procedures Procedure Name Priority Date/Time Associated Diagnosis Comments MAMMO 3D EDUAR DIAGNOSTIC BILAT W OR WO CAD Routine 01/04/2021 9:47 AM FINISHER DENTURE Malignant neoplasm of upper-outer quadrant of left female breast, unspecified estrogen receptor status (CMS/HCC) Abnormality of right breast on screening mammogram Abscess of left breast XR DEXA BONE DENSITY AXIAL 1 OR MORE SITES Routine 12/06/2012 12:54 PM CDT Special screening for osteoporosis Malignant neoplasm of breast (female), unspecified site (CMS/HCC) from Last 3 Months or Most Recently Relevant to Health Maintenance Results * MAMMO DIAG BILAT 3D EDUAR W OR WO CAD (01/04/2021 9:47 AM FINISHER DENTURE) Anatomical Region Laterality Modality Breast Bilateral Mammography 01/04/2021 9:47 AM FINISHER DENTURE Impressions 01/04/2021 10:46 AM FINISHER DENTURE IMPRESSION: 1. No concerning abnormality identified. OVERALL FINAL ASSESSMENT: BI-RADS CATEGORY 2 - Benign findings. RECOMMENDATION: 1. Recommend annual mammography with tomosynthesis. Narrative 01/04/2021 10:46 AM FINISHER DENTURE BILATERAL DIAGNOSTIC DIGITAL MAMMOGRAM WITH TOMOSYNTHESIS AND CAD DATE: 01/04/2021 9:47 AM DICTATION LOCATION: [facility] HISTORY: History of benign breast disease, yearly exam. TECHNIQUE: Full-field digital diagnostic mammograms of both breasts were obtained with 2-D and 3-D acquisitions. CAD was utilized. COMPARISON: Studies dating back to 01/20/2014. BREAST COMPOSITION: Heterogeneously dense, which limits the sensitivity of mammography. FINDINGS: No concerning dominant abnormality identified in either breast. Specifically no concerning, masses, microcalcifications or areas of architectural distortion. Changes related to excisional biopsy within the left breast. Procedure Note Dave Cabrera MD - 01/04/2021 BILATERAL DIAGNOSTIC DIGITAL MAMMOGRAM WITH TOMOSYNTHESIS AND CAD DATE: 01/04/2021 9:47 AM DICTATION LOCATION: [facility] HISTORY: History of benign breast disease, yearly exam. TECHNIQUE: Full-field digital diagnostic mammograms of both breasts were obtained with 2-D and 3-D acquisitions. CAD was utilized. COMPARISON: Studies dating back to 01/20/2014. BREAST COMPOSITION: Heterogeneously dense, which limits the sensitivity of mammography. FINDINGS: No concerning dominant abnormality identified in either breast. Specifically no concerning, masses, microcalcifications or areas of architectural distortion. Changes related to excisional biopsy within the left breast. IMPRESSION: 1. No concerning abnormality identified. OVERALL FINAL ASSESSMENT: BI-RADS CATEGORY 2 - Benign findings. RECOMMENDATION: 1. Recommend annual mammography with tomosynthesis. us Julia Lawler MD MAMMO ORDERABLES Final R esult * XR DEXA BONE DENSITY AXIAL 1 OR MORE SITES (12/06/2012 12:54 PM CDT) Anatomical Region Laterality Modality Computed Radiogr aphy 12/06/2012 9:43 AM CDT Narrative 12/06/2012 1:13 PM CDT XR DEXA BONE DENSITY AXIAL 1 OR MORE SITES Dictated from Location 1 ([facility]) HISTORY: 57 yo F with postmenopausal symptoms on calcium supplementation with a history of breast carcinoma needing evaluation for osteoporosis. PROCEDURE: Using a [employer] dual energy x-ray absorptiometry system, the patient's bone mineral density was measured over the lumbar spine and femurs. Comparison was made to age and sex matched normal values. FINDINGS: Lumbar Spine (L1-L4) Bone Mineral Density = 0.987 gm/cm2 Compared to young adult (T-score), difference of -1.6 Standard Deviations. The patient's spine BMD is osteopenic when compared to that of a young adult. Left Femoral Neck Bone Mineral Density = 0.785 gm/cm2 Compared to young adult (T-score), difference of -1.8 Standard Deviations. The patient's left femoral neck BMD is osteopenic when compared to that of a young adult. Right Femoral Neck Bone Mineral Density = 0.750 gm/cm2 Compared to young adult (T-score), difference of -2.1 Standard Deviations. The patient's right femoral neck BMD is osteopenic when compared to that of a young adult. No prior DEXA studies are available for comparison. Procedure Note Gilmar Fernandes, DO - 12/06/2012 XR DEXA BONE DENSITY AXIAL 1 OR MORE SITES Dictated from Location 1 ([facility]) HISTORY: 57 yo F with postmenopausal symptoms on calcium supplementation with a history of breast carcinoma needing evaluation for osteoporosis. PROCEDURE: Using a [employer] dual energy x-ray absorptiometry system, the patient's bone mineral density was measured over the lumbar spine and femurs. Comparison was made to age and sex matched normal values. FINDINGS: Lumbar Spine (L1-L4) Bone Mineral Density = 0.987 gm/cm2 Compared to young adult (T-score), difference of -1.6 Standard Deviations. The patient's spine BMD is osteopenic when compared to that of a young adult. Left Femoral Neck Bone Mineral Density = 0.785 gm/cm2 Compared to young adult (T-score), difference of -1.8 Standard Deviations. The patient's left femoral neck BMD is osteopenic when compared to that of a young adult. Right Femoral Neck Bone Mineral Density = 0.750 gm/cm2 Compared to young adult (T-score), difference of -2.1 Standard Deviations. The patient's right femoral neck BMD is osteopenic when compared to that of a young adult. No prior DEXA studies are available for comparison. Sera Mayo MD DIAGNOSTIC IMAGING ORDERABL ES Final Result from Last 3 Months or Most Recently Relevant to Health Maintenance Insurance RX [employer] RX Member Subscriber Plan / Payer (Ef fective 2020-Present) Name:Digna Healy Relation to Subscriber:Not on file Name:Digna Healy Subscriber ID:Not on file Payer ID:Not on file Group ID:[id number] Type:RX Commercial Address: [address] Advance Directives For more information, please contact: [phone] * Full Code (Latest Code Status on File) Date Activated Date Inactivated Comments 10/30/2011 8:48 AM 10/30/2011 5:02 PM * Full Code Date Activated Date Inactivated Comments 10/30/2011 8:40 AM 10/30/2011 8:48 AM Care Teams Dryer Operator Relationship Specialty Start Date End Date Jay Peraza MD [address] [place] [address] PCP - General Internal Medicine 10/30/11
--- OUTSIDE RECORDS SUMMARY | 2024-04-14 11:10 | XMS_ITS | Clinical Summary ---
Author Organization [facility] Address [facility] [place] [address] Care Team Providers Care Pattern Clerk Name Role Phone Jay Peraza MD Primary Care Provider Leodan ilable Allergies No known active allergies Medications esomeprazole (NEXIUM) 40 MG capsule Active CHANTIX 1 MG tablet Take 1 mg by mouth 2 (two) times daily. 10/22/2019 Active cephALEXin 500 MG capsuleIndicatio ns:taking for 7 days. Take 500 mg by mouth 4 (four) times daily. Indications : taking for 7 days. Active citalopram 20 MG tablet Take 20 mg by mouth daily. Active aspirin EC (ASPIRIN EC) 81 MG tablet Take 81 mg by mouth daily. Active vitamin B-12 (CYANOCOBALAMIN) 1000 mcg tablet Take 1,000 mcg by mouth daily. Active Active Problems Problem Noted Date Diagnosed Date Foraminal stenosis of cervical region 11/14/2019 Family History Medical History Relation Comments No Known Problems Brother 2 No Known Problems Brother 3 No Known Problems Brother 4 No Known Problems Brother 5 Heart Disease Father sciatica Mother Heart Disease Sister Relation Status Comments Brother 1 Brother 2 Alive Brother 3 Alive Brother 4 Alive Brother 5 Alive Father Mother Sister Social History Tobacco Use Types Packs/Day Years Used Date Smoking Tobacco: Former Cigarettes Smokeless Tobacco: Never Comments:quit for 1 month Alcohol Use Standard Drinks/Week Comments Yes 0 (1 standard drink = 0.6 oz pur e alcohol) socially Exercise Vital Sign Answer Date Recorde d On average, how many days pe r week do you engage in moderate to strenuous exercise (like a brisk walk)? 0 days 12/26/2019 On average, how many minutes do you engage in exercise at this level? 0 min 12/26/2019 Education Answer Date Recorded What is the highest level of school you have completed or the highest degree you have received? High school graduate 12/26/2019 Comments No Sex and Gender Information Value Date Recorded Sex Assigned at Not on file Legal Sex Female 7:03 PM CDT Gender Identity Not on file Sexual Orientation Not on file Occupation Industry Job Start Date Job End Date Not on file Not on file Not on file Not on file Last Filed Vital Signs Vital Sign Reading Time Taken Comments Blood Pressure 130/75 12/26/2019 11:28 AM SUPERVISOR PYROTECHNIC LOADING Pulse 87 12/26/2019 11:28 AM SUPERVISOR PYROTECHNIC LOADING Temperature 36.2 C (97.2 F) 12/26/2019 10:43 AM SUPERVISOR PYROTECHNIC LOADING Respiratory Rate 20 12/26/2019 11:28 AM SUPERVISOR PYROTECHNIC LOADING Oxygen Saturation 98% 12/26/2019 11:28 AM SUPERVISOR PYROTECHNIC LOADING Inhaled Oxygen Concentration - - Weight 63.5 kg (140 lb) 12/26/2019 10:48 AM SUPERVISOR PYROTECHNIC LOADING Height 152.4 cm (5') 12/26/2019 10:48 AM SUPERVISOR PYROTECHNIC LOADING Body Mass Index 27.34 12/26/2019 10:48 AM SUPERVISOR PYROTECHNIC LOADING Plan of Treatment Health Maintenance Due Date Last Done Comments Colorectal Cancer Screening Colonoscopy (10 Years) 1955 Hepatitis C 1974 DTaP, Tdap and Td Vaccines ( 1 - Tdap) 10/25/1975 Mammogram Screening 1996 Zoster Vaccines (2 of 2) 02/01/2020 12/07/2019 Dexa Scan (General) 2021 Pneumococcal Vaccine: 65+ Ye ars (2 of 2 - PCV) 2021 12/07/2019 COVID-19 Vaccine (1 - 2023-2 5 season) 2023 Influenza Adult (#1) 2023 12/07/2019 RSV Immunization or 60+ Years (1 - 1-dose 75+ series) 10/25/2031 Meningococcal B Vaccine Aged Out No l onger eligible based on patient's age to complete this topic Meningococcal Vaccine Aged Out No mahesh shekhar eligible based on patient's age to complete this topic RSV Immunizations Under 20 Months Aged Out No longer eligible based on patient's age to complete this topic Insurance Care Teams Pattern Clerk Relationship Specialty Start Date End Date Jay Peraza MD PCP - General INTERNAL MEDICINE 10/08/19
== END 2024-04-14 10:01 | disposition home or self-care (01) ==
PROVIDERS: PCP Physician Assistant Medical; Visit Provider Physician Assistant Medical
DX: Z12.2 Encounter for screening for malignant neoplasm of respiratory organs (principal); Z87.891 Personal history of nicotine dependence
CPT/HCPCS: 71271

== ENCOUNTER 2024-07-08 13:24 | Outpatient (CLI) | payer MEDICARE, SELFPAY ==
--- NOTE | ~2024-07-08 | NM_ITS ---
EXAMINATION: NM thyroid scan w uptake DATE: 07/09/2024 14:02 INDICATION: Other specified abnormal neurologic findings COMPARISON: Thyroid ultrasound dated 03/21/2022 TECHNIQUE: 100-400 microcuries I-123 was administered orally in capsule form. Scintigraphic images o f the thyroid gland were obtained at 24 hours. Thyroid uptake was calculated by the technologist. FINDINGS: The thyroid uptake is 22.2% (normal 10-30%), with the right lobe measuring 18.3% uptake and the left 4.3%. There is diffuse increased uptake throughout the right thyroid lobe which could represent uptak e associated with hyperfunctioning nodules with 3 large nodules seen from the cephalad to caudal aspe ct of the right thyroid lobe. IMPRESSION: 1. Normal 24-hour iodine uptake but with marked asymmetry with significantly increased uptake in the right thyroid lobe and decreased uptake in the left thyroid lobe suggesting that the 3 largest nodul es identified on prior ultrasound May be hyperfunctioning nodules with suppression of activity in the contralateral left thyroid lobe. Reviewed, dictated and finalized at location A. IMPRESSION: 1. Normal 24-hour iodine uptake but with marked asymmetry with significantly i ncreased uptake in the right thyroid lobe and decreased uptake in the left thyr oid lobe suggesting that the 3 largest nodules identified on prior ultrasound M ay be hyperfunctioning nodules with suppression of activity in the contralatera l left thyroid lobe.
--- OUTSIDE RECORDS SUMMARY | 2024-07-08 13:34 | XMS_ITS | Clinical Summary ---
Author Organization [facility] Address [address] [place] [address] Phone Care Team Providers Care Process Development Associate Name Role Phone Jay Peraza MD Primary Care Provider [phone] Allergies Active Allergy Reactions Criticality Noted Date [...] Peraza MD Referring Provider: Divine Culp MD [address] [place] [address] Other: Problem Noted Date Diagnosed Date Open wound of left breast 01/29/2020 Abscess of left breast 01/08/2020 Abnormality of right breast on screening mammogr am 01/08/2020 S/P BRETT-BSO 12/04/2011 Overview (12/04/2011): Fibroids Breast cancer Stage I ( T1c N0 Mx) IDC LEFT breast ER 8/8 CO 8/8 HER2/israel - Ki67 21% 10/11/2011 Overview (12/06/2012): 10/06/11 Stage I ( T1c N0 Mx) IDC LEFT breast ER 8/8 CO 8/8 HER2/israel - Ki67 21% S/p lumpectomy [...] IOV with daughter Chiara Abn mammo [facility] today for f/u FEM[facility] today Oncotype Weds BMD ordered (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 on file Not on file Last Filed Vital Signs Vital Sign Reading Time Taken Comments Blood Pressure 108/68 01/04/2021 11:50 AM [employer] Pulse 95 01/30/2020 6:11 PM [employer] Temperature 36.4 C (97.5 F) 01/30/2020 6:11 PM [employer] Respiratory Rate 16 01/30/2020 6:11 PM [employer] Oxygen Saturation 94% 01/30/2020 6:11 PM [employer] Inhaled Oxygen Concentration - - Weight 68.5 kg (151 lb) 01/04/2021 11:50 AM [employer] Height 152.4 cm (5') 01/04/2021 11:50 AM [employer] Body Mass Index 29.49 01/04/2021 11:50 AM [employer] Plan of Treatment Health Maintenance Due Date Last Done Comments DTAP/TDAP/TD VACCINES (1 - Tdap) 10/25/1975 PNEUMOCOCCAL VACCINE 50+ YEA RS (1 of 2 - PCV) 10/25/1975 COLORECTAL SCREENING 2001 Colorectal Cancer Screening 2001 FIT-DNA Q 3 years 2001 FIT/FOBT Q 1 year 2001 Flex Sig/CT Colonography Q 5 years 2001 ZOSTER VACCINE (1 of 2) 2006 OSTEOPOROSIS SCREENING 2021 12/06/2012 BREAST CANCER SCREENING 01/04/2022 01/05/20 21, 01/08/2020, 01/27/2015, Additional history exists INFLUENZA VACCINE (#1) 2023 RSV VACCINE (60+ or ) (1 - 1-dose 75+ series) 10/25/2031 Medical Devices Implanted Type Area Foundry Hand Device Identifier Shelf Expiration Date Model / Serial / Lot Hemostatic Surgicel 2x14in 1949 - [id number] Implanted:Qty : 1 on 01/30/2020 by Julia Lawler MD at [facility] Left: Breast [employer] [id number] 04/18/20241950 / [id number] Procedures Procedure Name Priority Date/Time Associated Diagnosis Comments MAMMO 3D EDUAR DIAGNOSTIC BILAT W OR WO CAD Routine 01/04/2021 9:47 AM [employer] Malignant neoplasm of upper-outer quadrant of left [...] W OR WO CAD (01/04/2021 9:47 AM [employer]WORKER) Anatomical Region Laterality Modality Breast Bilateral Mammography 01/04/2021 9:47 AM [employer]ER Impressions 01/04/2021 10:46 AM [employer]WORKER IMPRESSION: 1. No concerning abnormality identified. OVERALL FINAL ASSESSMENT: BI-RADS CATEGORY 2 - Benign findings. RECOMMENDATION: 1. Recommend annual mammography with tomosynthesis. Narrative 01/04/2021 10:46 AM [employer]WORKER BILATERAL DIAGNOSTIC DIGITAL MAMMOGRAM WITH TOMOSYNTHESIS AND CAD DATE: 01/04/2021 9:47 AM DICTATION LOCATION: [facility] HISTORY: History of benign breast disease, yearly [...] CAD DATE: 01/04/2021 9:47 AM DICTATION LOCATION: [facility] HISTORY: History of benign breast disease, yearly [...] OR MORE SITES Dictated from Location 1 ([facility]) HISTORY: 57 yo F with postmenopausal symptoms on calcium supplementation with a history of breast carcinoma needing evaluation for osteoporosis. PROCEDURE: Using a Transerv dual energy x-ray absorptiometry system, the patient's [...] OR MORE SITES Dictated from Location 1 ([facility]) HISTORY: 57 yo F with postmenopausal symptoms on calcium supplementation with a history of breast carcinoma needing evaluation for osteoporosis. PROCEDURE: Using a Transerv dual energy x-ray absorptiometry system, the patient's [...] on file Payer ID:Not on file Group ID:[id number] Type:RX Commercial Address: [address] Advance Directives For more information, please contact: [phone] * Full Code (Latest Code Status on File) Date Activated Date Inactivated Comments 10/30/2011 8:48 AM 10/30/2011 5:02 PM * Full Code Date Activated Date Inactivated Comments 10/30/2011 8:40 AM 10/30/2011 8:48 AM Care Teams Process Development Associate Relationship Specialty Start Date End Date Jay Peraza MD [address] [place] [address] PCP - General Internal Medicine 10/30/11
--- OUTSIDE RECORDS SUMMARY | 2024-07-08 13:34 | XMS_ITS | Clinical Summary ---
Author Organization [facility] Address [address] [place] [address] Care Team Providers Care Mason Tender Restoration Labor Name Role Phone Jay Peraza MD Primary Care Provider Unava ilable Allergies Active Allergy Reactions Criticality Noted Date Comments Nickel Swelling Low 01/29/2020 Sulfamethoxazole-Trimethop rim Itching,Other (see comment) Low 01/29/2020 Medications esomeprazole (NEXIUM) 40 MG capsule Active [...] Date Foraminal stenosis of cervical region 11/14/2019 Encounters Date Type Department Care Team Description 06/03/2024 8:01 PM CDT - 06/04/2024 1:35 AM CDT Emergency [facility] Emergency Room [address] [place], [place] [id number] Maikel Vasquez MD Suicidal Ideation; Alcohol Intoxication Discharge Disposition: Home or Self Care (Routine Discharge) 06/03/2024 Travel from Last 3 Months Family History Medical History Relation Comments No [...] Information Value Date Recorded Sex Assigned at Female 06/03/2024 7:55 PM CDT Legal Sex Female 7:03 PM CDT Gender Identity Not on file Sexual Orientation Not on file Occupation Industry Job Start Date Job End Date Not on file Not on file Not on file Not on file Last Filed Vital Signs Vital Sign Reading Time Taken Comments Blood Pressure 132/88 06/03/2024 8:06 PM CDT Pulse 79 06/03/2024 8:06 PM CDT Temperature 36.1 C (96.9 F) 06/03/2024 8:06 PM CDT Respiratory Rate 18 06/03/2024 8:06 PM CDT Oxygen Saturation 98% 06/03/2024 8:06 PM CDT Inhaled Oxygen Concentration - - Weight 63.5 kg (140 lb) 06/03/2024 8:06 PM CDT Height 152.4 cm (5') 06/03/2024 8:06 PM CDT Body Mass Index 27.34 06/03/2024 8:06 PM CDT Plan of Treatment Health Maintenance Due Date Last Done Comments Colorectal Cancer Screening Colonoscopy (10 Years) 1956 Hepatitis C 1974 DTaP, Tdap and Td Vaccines (1 - Tdap) 10/25/1975 Zoster Vaccines (2 of 2) 02/01/2020 12/07/2019 Pneumococcal Vaccine: 50+ Years (2 of 2 - PCV) 12/06/2020 12/07/2019 Annual Medicare Wellness Visit 2021 Dexa Scan (General) 2021 12/06/2012, 3 Mammogram Screening 01/04/2023 01/04/2021, 01/08/2020, 01/27/2015, Additional history exists COVID-19 Vaccine ( - 2023- season) 2023 RSV Immunization or 60+ Years (1 - 1-dose 75+ series) 10/25/2031 Meningococcal B Vaccine Aged Out No l onger eligible based on patient's age to complete this topic Meningococcal Vaccine Aged Out No mahesh shekhar eligible based on patient's age to complete this topic RSV Immunizations Under 20 Months Aged Out No longer eligible based on patient's age to complete this topic Procedures Procedure Name Priority Date/Time Associated Diagnosis Comments DRUG SCREEN RAPID STAT 06/03/2024 8:0 6 PM CDT SALICYLATE STAT 06/03/2024 8:00 PM CDT ACETAMINOPHEN STAT 06/03/2024 8:00 PM CDT ETHANOL STAT 06/03/2024 8:00 PM CDT CBC W/DIFF AUTOMATED STAT 06/03/2024 8:00 PM CDT COMPREHENSIVE METABOLIC PANEL STAT 06/03/2024 8:00 PM CDT from Last 3 Months Results * DRUG SCREEN RAPID (06/03/2024 8:06 PM CDT) AMPHETAMINE (U) NONE DETECTED NONE DETECTED 06/03/2024 8:20 PM CDT [facility] BARBITURATES SCREEN (U) NONE DETECTED NONE DETECTED 06/03/2024 8:20 PM CDT [facility] BENZODIAZEPINES SCREEN (U) NONE DETECTED NONE DETECTED 06/03/2024 8:20 PM CDT [facility] BUPRENORPHINE SCREEN (U) NONE DETECTED NONE DETECTED 06/03/2024 8:20 PM CDT [facility] COCAINE METABOLITES (U) NONE DETECTED NONE DETECTED 06/03/2024 8:20 PM CDT [facility] METHAMPHETAMINE (U) NONE DETECTED NONE DETECTED 06/03/2024 8:20 PM CDT [facility] METHADONE (U) NONE DETECTED NONE DETECTED 06/03/2024 8:20 PM CDT [facility] OPIATE SCREEN (U) NONE DETECTED NONE DETECTED 06/03/2024 8:20 PM CDT [facility] OXYCODONE SCREEN (U) NONE DETECTED NONE DETECTED 06/03/2024 8:20 PM CDT [facility] PHENCYCLIDINE PCP (U) NONE DETECTED NONE DETECTED 06/03/2024 8:20 PM CDT [facility] CANNABINOIDS SCREEN (U) NONE DETECTED NONE DETECTED 06/03/2024 8:20 PM CDT [facility] TRICYCLIC ANTIDEPRESSANT SCREEN (U) NONE DETECTED NONE DETECTED 06/03/2024 8:20 PM CDT [facility] Comment: NOTE: RESULTS OF THIS DRUG SCREEN SHOULD BE USED FOR MEDICAL PURPOSES ONLY AND NOT FOR LEGAL OR EMPLOYEMENT PURPOSES. MEDICATIONS CONTAINING EPHEDRINE MAY CAUSE FALSE POSITIVE AMPHETAMINE. AMPHETAMINE- 500 NG/ML BARBITURATE- 200 NG/ML BENZODIAZEPINE- 150 NG/ML BUPRENORPHINE- 10 NG/ML COCAINE- 150 NG/ML METHAMPHETAMINES- 500 NG/ML METHADONE- 200 NG/ML OPIATE- 100 NG/ML OXYCODONE- 100 NG/ML PCP- 25 NG/ML THC- 50 NG/ML TCA- 300 NG/ML URINE SPECIMEN / Unknown 06/03/2024 8:06 PM CDT us Maikel Vasquez MD URINE ORDERABLES Final Resul t [facility] [address] [place] [address], [place] [phone] * (ABNORMAL) COMPREHENSIVE METABOLIC PANEL (06/03/2024 8:00 PM CDT) [facility] GLUCOSE 156(H) 70 - 99 MG/DL 06/03/2024 8:30 PM CDT [facility] BUN 23(H) 7 - 18 MG/DL 06/03/2024 8:30 PM CDT [facility] CREATININE S/P/B 0.58 0.55 - 1.02 MG/DL 06/03/2024 8:30 PM T [facility] SODIUM S/P/B 145 136 - 145 MMOL/L 06/03/2024 8:30 PM T [facility] POTASSIUM S/P/B 3.8 3.5 - 5.1 MMOL/L 06/03/2024 8:30 PM T [facility] CHLORIDE S/P/B 105 100 - 108 MMOL/L 06/03/2024 8:30 PM T [facility] CO2 27.3 21 - 32 MMOL/L 06/03/2024 8:30 PM T [facility] CALCIUM S/P/B 9.3 8.5 - 10.1 MG/DL 06/03/2024 8:30 PM T [facility] BILIRUBIN TOTAL S/P/B 0.1(L) 0.2 - 1.2 MG/DL 06/03/2024 8:30 PM T [facility] TOTAL PROTEIN S/P/B 7.9 6.4 - 8.2 G/DL 06/03/2024 8:30 PM T [facility] ALBUMIN S/P/B 4.3 3.4 - 5.0 G/DL 06/03/2024 8:30 PM T [facility] AST 22 15 - 37 U/L 06/03/2024 8:30 PM CDT [facility] ALT 33 14 - 55 U/L 06/03/2024 8:30 PM CDT [facility] ALKALINE PHOSPHATASE S/P/B 67 50 - 136 U/L 06/03/2024 8:30 PM CDT [facility] ANION GAP 12.7 5 - 15 MMOL/L 06/03/2024 8:30 PM CDT [facility] BUN CREATININE RATIO 39.7(H) 6 - 26 06/03/2024 8:30 PM CDT [facility] A/G RATIO 1.2 1.0 - 2.0 RATIO 06/03/2024 8:30 PM CDT [facility] GFR ESTIMATE >90 >90 ML/MIN/1.7 3 M2 06/03/2024 8:30 PM T [facility] Comment: NOTE: eGFR is not calculated for patients <18 years of age or gender unknown. This is an estimated GFR calculation using the new CKD EPI creatinine equation without race and so does not require a correction factor for race. This estimated GFR should not be used for calculating drug doses. 06/03/2024 8:00 PM CDT us Maikel Vasquez MD LABORATORY Final Result [facility] [address] [place] [address], * (ABNORMAL) CBC W/DIFF AUTOMATED (06/03/2024 8:00 PM CDT) WBC 6.42 4.4 - 11.0 x10'3/uL 06/03/2024 8:05 PM CDT [facility] RBC 4.62 4.50 - 5.10 x10'6/uL 06/03/2024 8:05 PM CDT [facility] HGB 13.5 12.3 - 15.3 G/DL 06/03/2024 8:05 PM T [facility] HCT 41.4 35.9 - 44.6 % 06/03/2024 8:05 PM [facility] MCV 89.6 80.0 - 96.0 FL 06/03/2024 8:05 PM T [facility] MCH 29.2 25.3 - 30.9 PG 06/03/2024 8:05 PM [facility] MCHC 32.6 31.0 - 34.1 G/DL 06/03/2024 8:05 PM [facility] RDW 12.9 12.4 - 15.1 % 06/03/2024 8:05 PM [facility] PLT 297 151 - 353 x10'3/uL 06/03/2024 8:05 PM [facility] MPV 9.1(L) 9.6 - 12.0 FL 06/03/2024 8:05 PM [facility] RBC MORPHOLOGY NORMAL 06/03/2024 8:05 PM [facility] PLT MORPH. NORMAL 06/03/2024 8:05 PM [facility] WBC MORPHOLOGY NORMAL 06/03/2024 8:05 PM [facility] LYMPHOCYTES % 38.0 15.8 - 45.0 % 06/03/2024 8:05 PM [facility] NEUTROPHILS % 51.9 42.1 - 71.9 % 06/03/2024 8:05 PM [facility] MONOCYTES % 6.5 5.7 - 12.5 % 06/03/2024 8:05 PM [facility] EOSINOPHILS 2.3 0.0 - 5.6 % 06/03/2024 8:05 PM CDT [facility] BASOPHILS 0.8 0.0 - 1.3 % 06/03/2024 8:05 PM CDT [facility] ABS. NEUTROPHILS 3.33 1.40 - 6.00 x10'3/uL 06/03/2024 8:05 PM CDT [facility] IMMATURE GRANS % 0.5 0.0 - 0.5 % 06/03/2024 8:05 PM CDT [facility] ABS. LYMPHOCYTES 2.44 0.80 - 4.70 x10'3/uL 06/03/2024 8:05 PM CDT [facility] 06/03/2024 8:00 PM CDT us Maikel Vasquez MD LABORATORY Final Result Performing Organization Address City/[facility]/ZIP Co de Phone Number [facility] [address] [place] [address], [place] [phone] * (ABNORMAL) SALICYLATE (06/03/2024 8:00 PM CDT) SALICYLATES 1.5(L) 2.8 - 20.0 MG/DL 06/03/2024 8:13 PM CDT [facility] Comment: THERAPEUTIC: 2.8-20.0 Toxic Level: >=30 06/03/2024 8:00 PM CDT us Maikel Vasquez MD LABORATORY Final Result Performing Organization Address City/[facility]/ZIP Co de Phone Number [facility] [address] [place] [address], [place] [phone] * (ABNORMAL) ETHANOL (06/03/2024 8:00 PM CDT) ALCOHOL S/P/B 0.220(H) <0.003 G/DL 06/03/2024 8:30 PM CDT [facility] 06/03/2024 8:00 PM CDT us Maikel Vasquez MD LABORATORY Final Result Performing Organization Address [facility] Co de Phone Number [facility] [address] [place] [address], [place] [phone] * (ABNORMAL) ACETAMINOPHEN (06/03/2024 8:00 PM CDT) ACETAMINOPHEN S/P/B <0.5(L) 10.0 - 30.0 MCG/ML 06/03/2024 8:30 PM CDT [facility] Comment: THERAPEUTIC: 10-30 TOXIC: >200 06/03/2024 8:00 PM CDT Maikel Vasquez MD LABORATORY Final Result Performing Organization Address [facility] Co de Phone Number [facility] [address] [place] [address], [place] [phone] from Last 3 Months Insurance [employer] Care Teams [employer] Labor Relationship Specialty Start Date End Date Jay Peraza MD PCP - General INTERNAL MEDICINE 10/08/19
== END 2024-07-08 13:25 | disposition home or self-care (01) ==
PROVIDERS: PCP Physician Assistant Medical; Visit Provider Physician Assistant Medical
DX: R76.8 Other specified abnormal immunological findings in serum (principal)
CPT/HCPCS: 78014; A9516

== ENCOUNTER 2024-08-15 09:23 | Outpatient (CLI) | payer MEDICARE, SELFPAY ==
--- NOTE | 2024-08-15 09:32 | ECG_ITS ---
Test Date: 2024-08-15 09:43:57 Measurements Intervals [place] Rate: 88 P: 72 ND: 159 QRS: -31 QRSD: 105 T: 52 QT: 368 QTc: 447 Interpretive Statements SINUS RHYTHM LEFT AXIS DEVIATION BORDERLINE R WAVE PROGRESSION, ANTERIOR LEADS BASELINE ARTIFACT- I, II, III, AVR, AVL, AVF, V1, V4-V6 BORDERLINE ECG No previous ECG available for comparison Electronically Signed On 08-15-2024 09:59:28 CDT by Eran Ayala D.O.
== END 2024-08-15 09:24 | disposition home or self-care (01) ==
LOC: ANHLAB 09:24 → ANHCARD 09:26
PROVIDERS: PCP Physician Assistant Medical; Visit Provider Anesthesiology
DX: Z01.818 Encounter for other preprocedural examination (principal); E78.5 Hyperlipidemia, unspecified; R94.31 Abnormal electrocardiogram [ECG] [EKG]; Z72.0 Tobacco use
CPT/HCPCS: 93005

== ENCOUNTER 2024-08-21 07:40 | Day surgery (SDC) | payer MEDICARE, SELFPAY ==
[2024-08-12 09:39] VITALS: BMI 29.4
--- NOTE | 2024-08-21 06:55 | P.HPUP_ITS ---
History and Physical Update Update Date/Time: 08/21/24 06:55 Patient seen and examined in pre-operative holding area. No interval change in medical history or symptoms. Patient recalls previous discussion of benefits and alternatives to procedure. Continues to desire to proceed with left first extensor compartment release and right fourth extensor compartment steroid injection . Reviewed procedure, post-op expectations and risks including but not limited to bleeding, infection, injury to tendon/nerve/vessel, decreased hand function, stiffness, RSD, no change or worsening of symptoms. I discussed the possible use of assistants and their participation in the case. Patient sta dilma understanding and signed the consent form wishing to proceed.
--- NOTE | 2024-08-21 06:59 | P.OP_ITS ---
Procedure Note - Detailed Date of Procedure 08/21/24 <Mason Kaminski MD - Last Filed: 08/21/24 10:36> 08/21/24 <Irena Littlejohn PA-C - Last Filed: 08/21/24 07:59> Pre-op Diagnosis left deqeurvains andr gith 4th extensor compartment Tenosynovitis <Mason Kaminski MD - Last Filed: 08/21/24 10:36> left dequervains and right 4th extensor compartment Tenosynovitis <Irena Littlejohn PA-C - Last Filed: 08/21/24 07:59> Post-op Diagnosis Same <Mason Kaminski MD - Last Filed: 08/21/24 10:36> Procedure Performed left first extensor compartment release and right 4th extensor compartment steroid injection <Mason Kaminski MD - Last Filed: 08/21/24 10:36> Surgeon Mason Kaminski MD <Mason Kaminski MD - Last Filed: 08/21/24 10:36> Ergonomics Consultant irena littlejohn pa-c <Mason Kaminski MD - Last Filed: 08/21/24 10:36> Anesthesia MAC <Mason Kaminski MD - Last Filed: 08/21/24 10:36> Description of Procedure INFORMED CONSENT: The patient was seen and examined and marked in the pre- op area.? The patient signed the consent form. PROCEDURE IN DETAIL:The patient taken back to OR on the stretcher in supine position. Time out performed with anesthesia, surgeon and staff agreeing on patient's name site and surgery to be performed SCDs were placed on the lower extremities and inflated. A tourniquet was placed on {left} upper extremity and antibiotics given IV After anesthesia administered sedation I injected {6}cc 1%lido with epi and 0.5% marcaine plain at the operative site The?{left upper extremity}?was prepped and draped in sterile fashion the??{left upper extremity} was? exsanguinated with Esmarch bandage and tour niquet inflated to 250mmHg I injected 0.3cc 1%lidocaine plain and 0.7cc Betamethasone 6mg/ml injected into the right fourth extensor compartment under sterile conditions. I proceeded with making a longitudinal incision over the left 1st extensor compartment through skin and dermis with a 15 blade scalpel. Littler scissors were used to spread through subcutaneous tissue down to the extensor compartment. A branch of the dorsal radial sensory nerve was identified and protected throughout the procedure. I made an incision along the dorsal aspect of the 1st extensor compartment with 15 blade scalpel. Littler scissors were used to spread above and below the ligament proximally distally and completing the transection entirely. Ragnell retractor was used withdrawal of the APL and EPB tendons for inspection. They were free of masses and synovitis and gliding smoothly in the sheath without triggering or crepitus. No sub sheaths were identified. Irrigated with normal saline. Closure with 3-0 Vicryl for dermis and 4-0 Monocryl for subcuticular closure. A dressing of Dermabond, 4x4, taj, and rhonda bandage was applied after the tourniquet was let down noting the hand was warm and well perfused. The patient was then awaken from anesthesia and transferred to the recovery room in stable condition.? Complications - none EBL- 0cc Disposition - home in stable condition Irena Littlejohn PA-C was essential for positioning, retraction, closure and dressing placement <Mason Kaminski MD - Last Filed: 08/21/24 10:36> [facility] [place] [facility] - Charge Forward: Surgery Billing ([id number] for irena) <Mason Kaminski MD - Last Filed: 08/21/24 10:36>
--- OUTSIDE RECORDS SUMMARY | 2024-08-21 08:01 | XMS_ITS | Clinical Summary ---
Author Organization [facility] [place] Address [address] [place] [address] Phone Care Team Providers Care Case Management Director Name Role Phone Jay Peraza MD Primary Care Provider [phone] Allergies Active Allergy Reactions Criticality Noted Date [...] Peraza MD Referring Provider: Divine Culp MD [address] [place] [address] Other: Problem Noted Date Diagnosed Date Open wound of left breast 01/29/2020 Abscess of left breast 01/08/2020 Abnormality of right breast on screening mammogr am 01/08/2020 S/P BRETT-BSO 12/04/2011 Overview (12/04/2011): Fibroids Breast cancer Stage I ( T1c N0 Mx) IDC LEFT breast ER 8/8 [place] 8/8 HER2/israel - Ki67 21% 10/11/2011 Overview (12/06/2012): 10/06/11 Stage I ( T1c N0 Mx) IDC LEFT breast ER 8/8 [place] 8/8 HER2/israel - Ki67 21% S/p lumpectomy [...] IOV with daughter Chiara Abn mammo seeign [place] today for f/u FEMARA today Oncotype Weds BMD ordered ([facility]) Acid reflux Bulging disc Mart [...] on file Legal Sex Female 6:10 AM FIELD ADJUSTER Gender Identity Not on file Sexual Orientation Not on file 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 on file Not on file Last Filed Vital Signs Vital Sign Reading Time Taken Comments Blood Pressure 108/68 01/04/2021 11:50 AM FIELD ADJUSTER Pulse 95 01/30/2020 6:11 PM FIELD ADJUSTER Temperature 36.4 C (97.5 F) 01/30/2020 6:11 PM FIELD ADJUSTER Respiratory Rate 16 01/30/2020 6:11 PM FIELD ADJUSTER Oxygen Saturation 94% 01/30/2020 6:11 PM FIELD ADJUSTER Inhaled Oxygen Concentration - - Weight 68.5 kg (151 lb) 01/04/2021 11:50 AM FIELD ADJUSTER Height 152.4 cm (5') 01/04/2021 11:50 AM FIELD ADJUSTER Body Mass Index 29.49 01/04/2021 11:50 AM FIELD ADJUSTER Plan of Treatment Health Maintenance Due Date [...] series) 10/25/2031 Medical Devices Implanted Type Area Warranty Manager Device Identifier Shelf Expiration Date Model / Serial / Lot Hemostatic Surgicel 2x14in 1950 - [id number] Implanted:Qty : 1 on 01/30/2020 by Julia Lawler MD at [facility] Left: Breast [employer]J- [employer] [id number] 04/18/20241950 / [id number] Procedures Procedure Name Priority Date/Time Associated Diagnosis Comments MAMMO 3D EDUAR DIAGNOSTIC BILAT W OR WO CAD Routine 01/04/2021 9:47 AM FIELD ADJUSTER Malignant neoplasm of upper-outer quadrant of left [...] W OR WO CAD (01/04/2021 9:47 AM FIELD ADJUSTER) Anatomical Region Laterality Modality Breast Bilateral Mammography 01/04/2021 9:47 AM FIELD ADJUSTER Impressions 01/04/2021 10:46 AM FIELD ADJUSTER IMPRESSION: 1. No concerning abnormality identified. OVERALL FINAL ASSESSMENT: BI-RADS CATEGORY 2 - Benign findings. RECOMMENDATION: 1. Recommend annual mammography with tomosynthesis. Narrative 01/04/2021 10:46 AM FIELD ADJUSTER BILATERAL DIAGNOSTIC DIGITAL MAMMOGRAM WITH TOMOSYNTHESIS AND CAD DATE: 01/04/2021 9:47 AM DICTATION LOCATION: [facility] HISTORY: History of benign breast disease, yearly [...] CAD DATE: 01/04/2021 9:47 AM DICTATION LOCATION: [facility] HISTORY: History of benign breast disease, yearly [...] OR MORE SITES Dictated from Location 1 ([facility]) HISTORY: 57 yo F with postmenopausal symptoms on calcium supplementation with a history of breast carcinoma needing evaluation for osteoporosis. PROCEDURE: Using a [employer] dual energy x-ray absorptiometry system, the patient's [...] OR MORE SITES Dictated from Location 1 ([facility]) HISTORY: 57 yo F with postmenopausal symptoms on calcium supplementation with a history of breast carcinoma needing evaluation for osteoporosis. PROCEDURE: Using a [employer] dual energy x-ray absorptiometry system, the patient's [...] on file Payer ID:Not on file Group ID:[id number] Type:RX Commercial Address: [address] Advance Directives For more information, please contact: [phone] * Full Code (Latest Code Status on File) Date Activated Date Inactivated Comments 10/30/2011 8:48 AM 10/30/2011 5:02 PM * Full Code Date Activated Date Inactivated Comments 10/30/2011 8:40 AM 10/30/2011 8:48 AM Care Teams Case Management Director Relationship Specialty Start Date End Date Jay Peraza MD [address] [place] [address] PCP - General Internal Medicine 10/30/11
[2024-08-21 08:34] VITALS: BMI 30.2
[2024-08-21 08:38] VITALS: BP 117/67; PULSE 85; RESP 16; TEMP 36.4; O2SAT 99
[2024-08-21] MEDS: ACETAMINOPHEN 500 MG TABLET 1000 MG PO (08:45)
--- NOTE | 2024-08-21 09:15 | WPDANESEPPF ---
Anes - Initial Pre Proc Eval Procedure: Operation Date: 08/21/24 09:30 Proposed Procedures p Left First Extensor Compartment Release - Mason Kaminski MD s Right Fourth Extensor Sheath Steroid Injection - Mason Kaminski MD Date/Time: 08/21/24 09:15 Surgeon: Mason Kaminski MD Pre Op Diagnosis: Radial Styloid Tenosynovitis Patient Data Age: 68 Gender: F Height: 1.52 m Weight: 70.3 kg Last Vital Signs Temp 97.5 F L 08/21/24 08:38 Pulse 85 08/21/24 08:38 Resp 16 08/21/24 08:38 BP 117/67 08/21/24 08:38 Pulse Ox 99 08/21/24 08:38 O2 Del Method Room Air 08/21/24 08:38 Allergies Allergy/AdvReac Type Severity Reaction Status Date / Time No Known Allergies Allergy Verified 08/21/24 08:25 Home Medications ?Medication ?Instructions ?Recorded ?Confirmed ?Type multivitamin 1 tablet PO DAILY 08/11/20 08/21/24 History aspirin 81 mg tablet,delayed 81 mg PO DAILY 03/14/22 08/21/24 History release (Adult Low Dose Aspirin) Calcium w/vitamin D 600 mg BYMOUTH BID 04/30/23 08/21/24 History rosuvastatin 10 mg tablet (Crestor) 10 mg PO DAILY #90 tabs 03/27/24 08/21/24 Rx sertraline 50 mg tablet (Zoloft) 50 mg PO DAILY #90 tabs 03/27/24 08/21/24 Rx pantoprazole 40 mg tablet,delayed 40 mg PO QAM #90 tabs 06/17/24 08/21/24 Rx release omega-3 fatty acids 1,000 mg PO DAILY 08/12/24 08/21/24 History tramadol 50 mg tablet 50 mg PO Q6H PRN pain #12 tabs 08/21/24 Rx Patient hx anesthesia problems: none Family hx anesthesia problems: none Results Review: All pre-operative results and documents have been reviewed as part of the pre-operative evaluation. [facility] Past Medical History Medical History (Updated 06/17/24 @ 13:53 by Maxine Hammond PA-C) Family history of colon cancer Generalized anxiety disorder Tobacco use disorder Quit smoking 10/25/2023 Smokers' cough Depression History of right breast cancer Cervical spondylosis Hyperglycemia GERD (gastroesophageal reflux disease) Cancer Breast cancer- left breast Multinodular goiter Mart's esophagus with dysplasia Estrogen receptor positive status [ER+] Surgical History Surgical History History of bilateral cataract extraction 07/20/2023 S/P BRETT-BSO 2003 H/O foot surgery both feet bone spurs 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 Family History Family History Mother Family history of blood dyscrasia Hypertension Family history of anemia Family history of Alzheimer's disease Family history of lung disease Father Family history of drug dependence Depression Family history of cataracts Malignant neoplasm of prostate Family history of diabetes mellitus in first degree relative Diabetes mellitus Hypertension Heart disease Sibling Depression Heart disease Alcoholism Other Family history of chronic obstructive pulmonary disease Family history of coronary artery disease Social History Social History Social History: 03/20/24 very confident with medical forms Smoking packs per day: 0.5 Smoking cigarettes per day: 10.0 Years smoked: 30 Smoking pack-years: 15.00 Smoking status: Former smoker Tobacco type: cigarettes Second hand tobacco smoke exposure: Yes Smoking end date: 10/21/23 Alcohol intake: current Alcohol use details: socially/beer Substance use: never Substance use type: does not use Do You Feel Safe in your Home?: Yes Lack of Transportation: No Lack of Food: Never True Current Housing: I Have Housing Concerned About Future Housing: No Difficulty Paying Gas/Electric Bills: No Difficulty Paying for Meds: No Currently Unemployed: No Education: High School Diploma/GED Difficulty w/ Childcare or Family Care: No Living arrangements: alone Occupation/Education: retired Gender identity (if verbalized by the patient): Female Sexual Orientation (if Verbalized by the Patient): Straight or Heterosexual Spiritual care concerns: No Agree to blood products: Yes Anes - Eval Final PreProcedure Day of Procedure 08/21/24 09:15 Heart: regular rate and rhythm Lungs: clear to auscultation Airway: Mallampati scale class II Neurological: alert and oriented Last oral intake: >/= 8 hours ASA classification: II Anesthetic plan: proceed Anesthesia type and monitoring: monitored anesthesia care Results Review: All pre-operative results and documents have been reviewed as part of the pre-operative evaluation. Informed Consent: The patient's anesthetic plan and its attendant risks and benefits were discussed with the patient/family/POA. Questions were solicited and answers provided to the satisfaction of the patient/family/POA.
[2024-08-21] MEDS: LACTATED RINGERS 1,000 ML 30 ML IV CONT (09:37)
[2024-08-21] MEDS: ceFAZolin SODIUM 2 GM/20 ML SW SYRINGE IV PUSH (10:22)
[2024-08-21] MEDS: BETAMETHASONE SOD PHOS/ACETATE 30 MG/5 ML VIAL 4.2 MG I-ARTICULR (10:22)
[2024-08-21 10:41] VITALS: BP 89/43; PULSE 85; RESP 15; O2SAT 95
[2024-08-21] MEDS: LIDO 1%/EPINEPHRINE 1:100,000 10 ML VIAL 4 ML INFILTRATE (10:42)
[2024-08-21 10:51] VITALS: BP 89/56; PULSE 84; RESP 16; O2SAT 98
[2024-08-21 11:01] VITALS: BP 94/57; PULSE 83; RESP 16; O2SAT 97
[2024-08-21 11:11] VITALS: BP 95/57; PULSE 85; RESP 16; O2SAT 100
== END 2024-08-21 11:25 | disposition home or self-care (01) ==
PROVIDERS: PCP Physician Assistant Medical; Visit Provider Plastic Surgery
PROC: (CPT 26055; principal; 2024-08-21 09:30)
PROC: 3E0233Z Introduction of Anti-inflammatory into Muscle, Percutaneous Approach (ICD-10-PCS; CPT 25000; 2024-08-21 09:30)
DX: M65.4 Radial styloid tenosynovitis [de Quervain] (principal)
CPT/HCPCS: 25000; 20550

== ENCOUNTER 2024-09-08 11:01 | Outpatient (CLI) | payer MEDICARE, SELFPAY ==
--- NOTE | ~2024-09-08 | XR_ITS ---
EXAM/ PROCEDURE: XR wrist RT min 3V - 09/08/2024 11:05 CDT HISTORY: 68 years old Female with M25.531 - Pain in right wrist COMPARISON: None available TECHNIQUE: Three view(s) FINDINGS/ IMPRESSION: There are no fractures or dislocations.Joint space narrowing, subchondral sclerosis, subchondral cyst formation and osteophyte formation, compatible with mild osteoarthritis. Reviewed, dictated and finalized at location A.
--- OUTSIDE RECORDS SUMMARY | 2024-09-08 11:07 | XMS_ITS | Clinical Summary ---
Author Organization [facility] [place] Address [address] [place] [address] [address] Phone Care Team Providers Care Intellectual Property Legal Assistant Name Role Phone Jay Peraza MD Primary Care Provider [phone] Allergies Active Allergy Reactions Criticality Noted Date [...] Peraza MD Referring Provider: Divine Culp MD [address] [place] [address] Other: Problem Noted Date Diagnosed Date Open wound of left breast 01/29/2020 Abscess of left breast 01/08/2020 Abnormality of right breast on screening mammogr am 01/08/2020 S/P BRETT-BSO 12/04/2011 Overview (12/04/2011): Fibroids Breast cancer Stage I ( T1c N0 Mx) IDC LEFT breast ER 8/8 [place] 8/8 HER2/israel - Ki67 21% 10/11/2011 Overview (12/06/2012): 10/06/11 Stage I ( T1c N0 Mx) IDC LEFT breast ER 8/8 [place] 8/8 HER2/israel - Ki67 21% S/p lumpectomy [...] IOV with daughter Chiara Abn mammo seeign [place] today for f/u FEMARA today Oncotype Weds BMD ordered ([facility]) Acid reflux Bulging disc Mart esophagus [...] on file Legal Sex Female 6:10 AM WOVEN BLIND LOOM TENDER Gender Identity Not on file Sexual Orientation Not on file 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 on file Not on file Last Filed Vital Signs Vital Sign Reading Time Taken Comments Blood Pressure 108/68 01/04/2021 11:50 AM WOVEN BLIND LOOM TENDER Pulse 95 01/30/2020 6:11 PM WOVEN BLIND LOOM TENDER Temperature 36.4 C (97.5 F) 01/30/2020 6:11 PM WOVEN BLIND LOOM TENDER Respiratory Rate 16 01/30/2020 6:11 PM WOVEN BLIND LOOM TENDER Oxygen Saturation 94% 01/30/2020 6:11 PM WOVEN BLIND LOOM TENDER Inhaled Oxygen Concentration - - Weight 68.5 kg (151 lb) 01/04/2021 11:50 AM WOVEN BLIND LOOM TENDER Height 152.4 cm (5') 01/04/2021 11:50 AM WOVEN BLIND LOOM TENDER Body Mass Index 29.49 01/04/2021 11:50 AM WOVEN BLIND LOOM TENDER Plan of Treatment Health Maintenance Due Date [...] 01/27/2015, Additional history exists INFLUENZA VACCINE (#1) 2024 RSV VACCINE (60+ or ) (1 - 1-dose 75+ series) 10/25/2031 Medical Devices Implanted Type Area Production Support Manager Device Identifier Shelf Expiration Date Model / Serial / Lot Hemostatic Surgicel 2x14in 1949 - [id number] Implanted:Qty : 1 on 01/30/2020 by Julia Lawler MD at [facility] Left: Breast [employer]- [employer] [id number] 04/18/20241950 / [id number] Procedures Procedure Name Priority Date/Time Associated Diagnosis Comments MAMMO 3D EDUAR DIAGNOSTIC BILAT W OR WO CAD Routine 01/04/2021 9:47 AM WOVEN BLIND LOOM TENDER Malignant neoplasm of upper-outer quadrant of left [...] W OR WO CAD (01/04/2021 9:47 AM WOVEN BLIND LOOM TENDER) Anatomical Region Laterality Modality Breast Bilateral Mammography 01/04/2021 9:47 AM WOVEN BLIND LOOM TENDER Impressions 01/04/2021 10:46 AM WOVEN BLIND LOOM TENDER IMPRESSION: 1. No concerning abnormality identified. OVERALL FINAL ASSESSMENT: BI-RADS CATEGORY 2 - Benign findings. RECOMMENDATION: 1. Recommend annual mammography with tomosynthesis. Narrative 01/04/2021 10:46 AM WOVEN BLIND LOOM TENDER BILATERAL DIAGNOSTIC DIGITAL MAMMOGRAM WITH TOMOSYNTHESIS AND CAD DATE: 01/04/2021 9:47 AM DICTATION LOCATION: [facility] HISTORY: History of benign breast disease, yearly [...] CAD DATE: 01/04/2021 9:47 AM DICTATION LOCATION: [facility] HISTORY: History of benign breast disease, yearly [...] OR MORE SITES Dictated from Location 1 ([facility]) HISTORY: 57 yo F with postmenopausal symptoms on calcium supplementation with a history of breast carcinoma needing evaluation for osteoporosis. PROCEDURE: Using a [employer] dual energy x-ray absorptiometry system, the patient's [...] OR MORE SITES Dictated from Location 1 ([facility]) HISTORY: 57 yo F with postmenopausal symptoms on calcium supplementation with a history of breast carcinoma needing evaluation for osteoporosis. PROCEDURE: Using a [employer] dual energy x-ray absorptiometry system, the patient's [...] on file Payer ID:Not on file Group ID:[id number] Type:RX Commercial Address: [address] Advance Directives For more information, please contact: [phone] * Full Code (Latest Code Status on File) Date Activated Date Inactivated Comments 10/30/2011 8:48 AM 10/30/2011 5:02 PM * Full Code Date Activated Date Inactivated Comments 10/30/2011 8:40 AM 10/30/2011 8:48 AM Care Teams Intellectual Property Legal Assistant Relationship Specialty Start Date End Date Jay Peraza MD [address] [place] [address] PCP - General Internal Medicine 10/30/11
--- OUTSIDE RECORDS SUMMARY | 2024-09-08 11:07 | XMS_ITS | Clinical Summary ---
Author Organization [facility] Address [facility] [place] [address] Care Team Providers Care Tool And Die Assembler Name Role Phone Jay Peraza MD Primary [...] 01/08/2020, 01/27/2015, Additional history exists COVID-19 Vaccine (1 - 2023- season) 2023 RSV Immunization or [...] patient's age to complete this topic Insurance [facility] Care Teams Tool And Die Assembler Relationship Specialty Start Date End Date Jay Peraza MD PCP - General INTERNAL MEDICINE 10/08/19
== END 2024-09-08 11:02 | disposition home or self-care (01) ==
PROVIDERS: PCP Physician Assistant Medical; Visit Provider Physician Assistant Surgical
DX: M25.531 Pain in right wrist (principal)
CPT/HCPCS: 73110

== ENCOUNTER 2024-09-22 01:11 | Day surgery (SDC) | payer MEDICARE, SELFPAY ==
[2024-09-10 11:58] VITALS: BMI 30.1
--- OUTSIDE RECORDS SUMMARY | 2024-09-22 01:13 | XMS_ITS | Clinical Summary ---
Author Organization [facility] [place] Address [address] [place] [address] Phone Care Team Providers Care Vaccine Manager Name Role Phone Jay Peraza MD Primary Care Provider [phone] Allergies Active Allergy Reactions Criticality Noted Date [...] Peraza MD Referring Provider: Divine Culp MD [address] [place] [address] Other: Problem Noted Date Diagnosed Date Open wound of left breast 01/29/2020 Abscess of left breast 01/08/2020 Abnormality of right breast on screening mammogr am 01/08/2020 S/P BRETT-BSO 12/04/2011 Overview (12/04/2011): Fibroids Breast cancer Stage I ( T1c N0 Mx) IDC LEFT breast ER 8/8 [place] 8/8 HER2/israel - Ki67 21% 10/11/2011 Overview (12/06/2012): 10/06/11 Stage I ( T1c N0 Mx) IDC LEFT breast ER 8/8 [place] 8/8 HER2/israel - Ki67 21% S/p lumpectomy [...] IOV with daughter Chiara Abn mammo seeign [place] today for f/u FEMARA today Oncotype Weds BMD ordered ([facility]) Acid reflux Bulging disc Mart esophagus Family [...] on file Legal Sex Female 6:10 AM CORPORATE TRAVEL COORDINATOR Gender Identity Not on file Sexual Orientation Not on file 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 on file Not on file Last Filed Vital Signs Vital Sign Reading Time Taken Comments Blood Pressure 108/68 01/04/2021 11:50 AM CORPORATE TRAVEL COORDINATOR Pulse 95 01/30/2020 6:11 PM CORPORATE TRAVEL COORDINATOR Temperature 36.4 C (97.5 F) 01/30/2020 6:11 PM CORPORATE TRAVEL COORDINATOR Respiratory Rate 16 01/30/2020 6:11 PM CORPORATE TRAVEL COORDINATOR Oxygen Saturation 94% 01/30/2020 6:11 PM CORPORATE TRAVEL COORDINATOR Inhaled Oxygen Concentration - - Weight 68.5 kg (151 lb) 01/04/2021 11:50 AM CORPORATE TRAVEL COORDINATOR Height 152.4 cm (5') 01/04/2021 11:50 AM CORPORATE TRAVEL COORDINATOR Body Mass Index 29.49 01/04/2021 11:50 AM CORPORATE TRAVEL COORDINATOR Plan of Treatment Health Maintenance Due Date [...] series) 10/25/2031 Medical Devices Implanted Type Area Seat Joiner Chainstitch Device Identifier Shelf Expiration Date Model / Serial / Lot Hemostatic Surgicel 2x14in 1950 - [id number] Implanted:Qty : 1 on 01/30/2020 by Julia Lawler MD at [facility] Left: Breast [employer] [id number] 04/18/20241950 / [id number] Procedures Procedure Name Priority Date/Time Associated Diagnosis Comments MAMMO 3D EDUAR DIAGNOSTIC BILAT W OR WO CAD Routine 01/04/2021 9:47 AM CORPORATE TRAVEL COORDINATOR Malignant neoplasm of upper-outer quadrant of left [...] W OR WO CAD (01/04/2021 9:47 AM CORPORATE TRAVEL COORDINATOR) Anatomical Region Laterality Modality Breast Bilateral Mammography 01/04/2021 9:47 AM CORPORATE TRAVEL COORDINATOR Impressions 01/04/2021 10:46 AM CORPORATE TRAVEL COORDINATOR IMPRESSION: 1. No concerning abnormality identified. OVERALL FINAL ASSESSMENT: BI-RADS CATEGORY 2 - Benign findings. RECOMMENDATION: 1. Recommend annual mammography with tomosynthesis. Narrative 01/04/2021 10:46 AM CORPORATE TRAVEL COORDINATOR BILATERAL DIAGNOSTIC DIGITAL MAMMOGRAM WITH TOMOSYNTHESIS AND CAD DATE: 01/04/2021 9:47 AM DICTATION LOCATION: [facility] HISTORY: History of benign breast disease, [...] CAD DATE: 01/04/2021 9:47 AM DICTATION LOCATION: [facility] HISTORY: History of benign breast disease, [...] OR MORE SITES Dictated from Location 1 ([facility]) HISTORY: 57 yo F with postmenopausal symptoms on calcium supplementation with a history of breast carcinoma needing evaluation for osteoporosis. PROCEDURE: Using a [employer] dual energy x-ray absorptiometry system, the patient's [...] OR MORE SITES Dictated from Location 1 ([facility]) HISTORY: 57 yo F with postmenopausal symptoms on calcium supplementation with a history of breast carcinoma needing evaluation for osteoporosis. PROCEDURE: Using a [employer] dual energy x-ray absorptiometry system, the patient's [...] on file Payer ID:Not on file Group ID:[id number] Type:RX Commercial Address: [address] Advance Directives For more information, please contact: [phone] * Full Code (Latest Code Status on File) Date Activated Date Inactivated Comments 10/30/2011 8:48 AM 10/30/2011 5:02 PM * Full Code Date Activated Date Inactivated Comments 10/30/2011 8:40 AM 10/30/2011 8:48 AM Care Teams Vaccine Manager Relationship Specialty Start Date End Date Jay ePraza MD [address] [place] [address] PCP - General Internal Medicine 10/30/11
--- OUTSIDE RECORDS SUMMARY | 2024-09-22 01:13 | XMS_ITS | Clinical Summary ---
Author Organization [facility] Address [facility] [place] [address] Care Team Providers Care Card Placer Name Role Phone Jay Peraza MD Primary [...] patient's age to complete this topic Insurance [place] Care Teams Card Placer Relationship Specialty Start Date End Date Jay Peraza MD PCP - General INTERNAL MEDICINE 10/08/19
[2024-09-22 12:21] VITALS: BP 118/74; PULSE 90; RESP 18; TEMP 36.4; O2SAT 100; BMI 29.9
--- NOTE | 2024-09-22 12:25 | P.PNAN_ITS ---
Anes - Initial Pre Proc Eval Procedure: Operation Date: 09/22/24 13:30 Proposed Procedures p Esophagogastroduodenoscopy - Eran Ponce MD Date/Time: 09/22/24 12:25 Surgeon: Eran Ponce MD Pre Op Diagnosis: Gastro-esophageal reflux disease without esophagit Patient Data Age: 68 Gender: F Height: 1.52 m Weight: 69.5 kg Last Vital Signs Temp 36.4 C 09/22/24 12:21 Pulse 90 09/22/24 12:21 Resp 18 09/22/24 12:21 BP 118/74 09/22/24 12:21 Pulse Ox 100 09/22/24 12:21 O2 Del Method Room Air 09/22/24 12:21 Allergies Allergy/AdvReac Type Severity Reaction Status Date / Time No Known Allergies Allergy Verified 09/22/24 12:19 Home Medications ?Medication ?Instructions ?Recorded ?Confirmed ?Type multivitamin 1 tablet PO DAILY 08/11/20 09/22/24 History aspirin 81 mg tablet,delayed 81 mg PO DAILY 03/14/22 08/28/24 History release (Adult Low Dose Aspirin) Calcium w/vitamin D 600 mg BYMOUTH BID 04/30/23 09/22/24 History rosuvastatin 10 mg tablet (Crestor) 10 mg PO DAILY #90 tabs 03/27/24 09/22/24 Rx sertraline 50 mg tablet (Zoloft) 50 mg PO DAILY #90 tabs 03/27/24 09/22/24 Rx pantoprazole 40 mg tablet,delayed 40 mg PO QAM #90 tabs 06/17/24 09/22/24 Rx release omega-3 fatty acids 1,000 mg PO DAILY 08/12/24 09/22/24 History sucralfate 1 gram tablet (Carafate) 1 g PO QID 8 weeks #224 tabs 08/29/24 09/22/24 Rx Patient hx anesthesia problems: none Family hx anesthesia problems: none Results Review: All pre-operative results and documents have been reviewed as part of the pre- operative evaluation. [facility] Past Medical History Medical History (Updated 09/22/24 @ 08:07 by Darron Shaffer DO) History of breast cancer Hyperlipidemia Family history of colon cancer Generalized anxiety disorder Tobacco use disorder Quit smoking 10/25/2023 Smokers' cough Depression History of right breast cancer Cervical spondylosis Hyperglycemia GERD (gastroesophageal reflux disease) Cancer Breast cancer- left breast Multinodular goiter Mart's esophagus with dysplasia Estrogen receptor positive status [ER+] Surgical History Surgical History History of bilateral cataract extraction 07/20/2023 S/P BRETT-BSO 2003 H/O foot surgery both feet bone spurs 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 Family History Family History Mother Family history of blood dyscrasia Hypertension Family history of anemia Family history of Alzheimer's disease Family history of lung disease Father Family history of drug dependence Depression Family history of cataracts Malignant neoplasm of prostate Family history of diabetes mellitus in first degree relative Diabetes mellitus Hypertension Heart disease Sibling Depression Heart disease Alcoholism Other Family history of chronic obstructive pulmonary disease Family history of coronary artery disease Social History Social History Social History: 03/20/24 very confident with medical forms Smoking packs per day: 1 Smoking cigarettes per day: 20.0 Years smoked: 40 Smoking pack-years: 40.00 Smoking status: Former smoker Tobacco type: cigarettes Second hand tobacco smoke exposure: Yes Smoking end date: 10/21/23 Alcohol intake: current Drinks per week: 4 Alcohol use details: socially/beer Substance use: never Substance use type: does not use Do You Feel Safe in your Home?: Yes Lack of Transportation: No Lack of Food: Never True Current Housing: I Have Housing Concerned About Future Housing: No Difficulty Paying Gas/Electric Bills: No Difficulty Paying for Meds: No Currently Unemployed: No Education: High School Diploma/GED Difficulty w/ Childcare or Family Care: No Living arrangements: with family Occupation/Education: retired Gender identity (if verbalized by the patient): Female Sexual Orientation (if Verbalized by the Patient): Straight or Heterosexual Spiritual care concerns: No Agree to blood products: Yes Anes - Eval Final PreProcedure Day of Procedure 09/22/24 12:25 Patient weight: overweight Heart: regular rate and rhythm Lungs: clear to auscultation Airway: Mallampati scale class II Neurological: alert and oriented Last oral intake: >/= 8 hours ASA classification: III Emergent: no Anesthetic plan: proceed Anesthesia type and monitoring: general GIVS and standard monitoring Results Review: All pre-operative results and documents have been reviewed as part of the pre- operative evaluation. Informed Consent: The patient's anesthetic plan and its attendant risks and benefits were discussed with the patient/family/POA. Questions were solicited and answers provided to the satisfaction of the patient/family/POA.
[2024-09-22] MEDS: LACTATED RINGERS 1,000 ML 150 ML IV CONT (12:31)
[2024-09-22] MEDS: SIMETHICONE ORAL SUSPENSION 20 MG/0.3 ML 30 ML BOTTLE 1.8 ML PO (12:35)
--- NOTE | 2024-09-22 12:58 | PM.IMHP ---
H&P: HPI History of Present Illness Date/Time: 09/22/24 12:58 Chief Complaint: GERD-vomiting Narrative: patient with longstanding history of GERD, a 1 point she was diagnosed with Mart's esophagus which was not confirmed during her last EGD. She is partially controlled with pantoprazole 40 mg q.d.. Additionally, on occasions she presents sudden onset of vomiting episodes without identifiable triggers. She is now referred for EGD. Review of Systems Review of Systems: All systems reviewed & are unremarkable except as noted in HPI and below [facility] Past Medical History Medical History (Updated 09/22/24 @ 08:07 by Darron Shaffer, ) History of breast cancer Hyperlipidemia Family history of colon cancer Generalized anxiety disorder Tobacco use disorder Quit smoking 10/25/2023 Smokers' cough Depression History of right breast cancer Cervical spondylosis Hyperglycemia GERD (gastroesophageal reflux disease) Cancer Breast cancer- left breast Multinodular goiter Mart's esophagus with dysplasia Estrogen receptor positive status [ER+] Surgical History Surgical History History of bilateral cataract extraction 07/20/2023 S/P BRETT-BSO 2003 H/O foot surgery both feet bone spurs 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 Family History Family History Mother Family history of blood dyscrasia Hypertension Family history of anemia Family history of Alzheimer's disease Family history of lung disease Father Family history of drug dependence Depression Family history of cataracts Malignant neoplasm of prostate Family history of diabetes mellitus in first degree relative Diabetes mellitus Hypertension Heart disease Sibling Depression Heart disease Alcoholism Other Family history of chronic obstructive pulmonary disease Family history of coronary artery disease Social History Social History Social History: 03/20/24 very confident with medical forms Smoking packs per day: 1 Smoking cigarettes per day: 20.0 Years smoked: 40 Smoking pack-years: 40.00 Smoking status: Former smoker Tobacco type: cigarettes Second hand tobacco smoke exposure: Yes Smoking end date: 10/21/23 Alcohol intake: current Drinks per week: 4 Alcohol use details: socially/beer Substance use: never Substance use type: does not use Do You Feel Safe in your Home?: Yes Lack of Transportation: No Lack of Food: Never True Current Housing: I Have Housing Concerned About Future Housing: No Difficulty Paying Gas/Electric Bills: No Difficulty Paying for Meds: No Currently Unemployed: No Education: High School Diploma/GED Difficulty w/ Childcare or Family Care: No Living arrangements: with family Occupation/Education: retired Gender identity (if verbalized by the patient): Female Sexual Orientation (if Verbalized by the Patient): Straight or Heterosexual Spiritual care concerns: No Agree to blood products: Yes Meds Home Medications and Allergies Home Medications ?Medication ?Instructions ?Recorded ?Confirmed ?Type multivitamin 1 tablet PO DAILY 08/11/20 09/22/24 History aspirin 81 mg tablet,delayed 81 mg PO DAILY 03/14/22 08/28/24 History release (Adult Low Dose Aspirin) Calcium w/vitamin D 600 mg BYMOUTH BID 04/30/23 09/22/24 History rosuvastatin 10 mg tablet (Crestor) 10 mg PO DAILY #90 tabs 03/27/24 09/22/24 Rx sertraline 50 mg tablet (Zoloft) 50 mg PO DAILY #90 tabs 03/27/24 09/22/24 Rx pantoprazole 40 mg tablet,delayed 40 mg PO QAM #90 tabs 06/17/24 09/22/24 Rx release omega-3 fatty acids 1,000 mg PO DAILY 08/12/24 09/22/24 History sucralfate 1 gram tablet (Carafate) 1 g PO QID 8 weeks #224 tabs 08/29/24 09/22/24 Rx Allergies Allergy/AdvReac Type Severity Reaction Status Date / Time No Known Allergies Allergy Verified 09/22/24 12:19 Vital Signs Vital Signs - 24 hr 09/22/24 12:21 Temperature 97.6 F Pulse Rate 90 Respiratory Rate 18 Blood Pressure 118/74 Pulse Oximetry 100 Oxygen Delivery Room Air Exam Const: General: cooperative and healthy appearing Resp: Effort & Inspection: normal respiratory effort and able to speak in complete sentences Auscultation: clear to auscultation bilaterally Cardio: Rate: regular rate Rhythm: regular rhythm GI: Inspection: normal to inspection GI Palp: No No hepatosplenomegaly present Auscultation: normal bowel sounds Rectal Exam: deferred Skin: General skin exam: normal color Psych: Appearance: grossly normal Mental Status: mental status grossly normal Assessment and Plan Assessment and plan (1) GERD (gastroesophageal reflux disease): Code(s): K21.9 - Gastro-esophageal reflux disease without esophagitis Status: Acute Assessment and Plan: The patient is deemed a good candidate for the procedure. Consent signed. Will proceed.
--- NOTE | 2024-09-22 13:15 | S_PTH ---
PATIENT: Digna Healy LOC: [facility] #:[id number] AGE/SX: 68/F ROOM: RE09/22/[address]: Eran Ponce MD : [id number] BED: DIS: 09/22/2024 SPEC #: [id number] RECD: 09/22/24 14:47 STATUS: HIRAM REQ #: [id number] OTTO: 09/22/24 13:[address]: Eran Ponce DEPT: [facility] [place] Surgical RECD BY: Nickie Sidhu ENTERED: 09/22/24 14:47 SP TYPE: Surgical OTHR DR: Maxine Hammond PA-C Tissues: A - Gastric Biopsy B - Gastric Biopsy Procedures: Hematoxylin and Eosin Stain Gross and Microscopic Level 4
[2024-09-22 13:18] VITALS: BP 84/37; PULSE 88; RESP 20; O2SAT 97
[2024-09-22 13:28] VITALS: BP 108/79; PULSE 77; RESP 18; O2SAT 98
[2024-09-22 13:38] VITALS: BP 114/61; PULSE 84; RESP 18; O2SAT 100
== END 2024-09-22 13:49 | disposition home or self-care (01) ==
PROVIDERS: PCP Physician Assistant Medical; Referring Provider Nurse Practitioner Family; Visit Provider Internal Medicine Gastroenterology
PROC: 0DJ08ZZ Inspection of Upper Intestinal Tract, Via Natural or Artificial Opening Endoscopic (ICD-10-PCS; CPT 43239; principal; 2024-09-22 13:30)
DX: K21.9 Gastro-esophageal reflux disease without esophagitis (principal); K29.30 Chronic superficial gastritis without bleeding; E78.5 Hyperlipidemia, unspecified; R73.9 Hyperglycemia, unspecified; F41.9 Anxiety disorder, unspecified; F32.A Depression, unspecified; M43.02 Spondylolysis, cervical region; Z79.82 Long term (current) use of aspirin; Z98.890 Other specified postprocedural states; Z87.891 Personal history of nicotine dependence; Z92.3 Personal history of irradiation; Z85.3 Personal history of malignant neoplasm of breast; Z87.19 Personal history of other diseases of the digestive system; Z80.0 Family history of malignant neoplasm of digestive organs; Z80.42 Family history of malignant neoplasm of prostate; Z82.49 Family history of ischemic heart disease and other diseases of the circulatory system
CPT/HCPCS: 43239; 88305; J2003; J2371; J2704; J7120

== ENCOUNTER 2024-09-23 09:49 | Outpatient (CLI) | payer MEDICARE, SELFPAY ==
--- NOTE | ~2024-09-23 | XR_ITS ---
EXAMINATION: XR UGIAC w barium swallow DATE: 09/23/2024 10:49 INDICATION: Nausea and vomiting TECHNIQUE: The patient drank thick barium, gas-producing crystals, and thin barium. Fluoroscopic spot radiographs of the hypopharynx, esophagus, stomach and proximal small bowel were obtained. A total o f 936 fluoroscopic images were recorded. Fluoroscopy exposure time was 2.4 minutes. Total DAP was 12. 389 Gycm^2. COMPARISON: None. FINDINGS: The pharynx is symmetric and without evidence of mass lesion or mucosal irregularity. The esophagus i s normal without mass or stricture. Esophageal motility is normal. Small sliding-type hiatal hernia w ith gastroesophageal junction approximately 4 cm above the diaphragm. There was no gastroesophageal r eflux with provocative maneuvers. The stomach and proximal small bowel are normal. There is indetermi ivan small density projecting along the left side of the upper lumbar spine: The stomach and cephalad to the transverse colon. IMPRESSION: 1. Small sliding-type hiatal hernia without gastroesophageal reflux. 2. Indeterminate small density in the upper abdomen situated between the stomach and the colon, poten tially chronic retained contrast in a diverticulum, calcified lymph node as sequela of old granulomat ous disease or treated malignancy or mesenteric calcification is considered sclerosing mesenteritis o r carcinoid tumor. Correlate with any prior outside imaging if available. Otherwise could consider fu rther evaluation with CT. Reviewed, dictated and finalized at location A. IMPRESSION: 1. Small sliding-type hiatal hernia without gastroesophageal reflux. 2. Indeterminate small density in the upper abdomen situated between the stomac h and the colon, potentially chronic retained contrast in a diverticulum, calci fied lymph node as sequela of old granulomatous disease or treated malignancy o r mesenteric calcification is considered sclerosing mesenteritis or carcinoid t umor. Correlate with any prior outside imaging if available. Otherwise could co nsider further evaluation with CT.
--- OUTSIDE RECORDS SUMMARY | 2024-09-23 10:18 | XMS_ITS | Clinical Summary ---
Author Organization [facility] [place] Address [address] [place] [address] Phone Care Team Providers Care Reproduction Machine Loader Name Role Phone Jay Peraza MD Primary Care Provider [phone] Allergies Active Allergy Reactions Criticality Noted Date [...] Peraza MD Referring Provider: Divine Culp MD [address] [place] [address] Other: Problem Noted Date Diagnosed Date Open wound of left breast 01/29/2020 Abscess of left breast 01/08/2020 Abnormality of right breast on screening mammogr am 01/08/2020 S/P BRETT-BSO 12/04/2011 Overview (12/04/2011): Fibroids Breast cancer Stage I ( T1c N0 Mx) IDC LEFT breast ER 8/8 [place] 8/8 HER2/israel - Ki67 21% 10/11/2011 Overview (12/06/2012): 10/06/11 Stage I ( T1c N0 Mx) IDC LEFT breast ER 8/8 [place] 8/8 HER2/israel - Ki67 21% S/p lumpectomy [...] IOV with daughter Chiara Abn mammo seeign [place] today for f/u FEMARA today Oncotype Weds BMD ordered ([facility]) Acid reflux Bulging disc Mart [...] on file Legal Sex Female 6:10 AM TOLL COLLECTOR Gender Identity Not on file Sexual Orientation Not on file 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 on file Not on file Last Filed Vital Signs Vital Sign Reading Time Taken Comments Blood Pressure 108/68 01/04/2021 11:50 AM TOLL COLLECTOR Pulse 95 01/30/2020 6:11 PM TOLL COLLECTOR Temperature 36.4 C (97.5 F) 01/30/2020 6:11 PM TOLL COLLECTOR Respiratory Rate 16 01/30/2020 6:11 PM TOLL COLLECTOR Oxygen Saturation 94% 01/30/2020 6:11 PM TOLL COLLECTOR Inhaled Oxygen Concentration - - Weight 68.5 kg (151 lb) 01/04/2021 11:50 AM TOLL COLLECTOR Height 152.4 cm (5') 01/04/2021 11:50 AM TOLL COLLECTOR Body Mass Index 29.49 01/04/2021 11:50 AM TOLL COLLECTOR Plan of Treatment Health Maintenance Due Date [...] series) 10/25/2031 Medical Devices Implanted Type Area Coil Machine Supervisor Device Identifier Shelf Expiration Date Model / Serial / Lot Hemostatic Surgicel 2x14in 1949 - [id number] Implanted:Qty : 1 on 01/30/2020 by Julia Lawler MD at [facility] Left: Breast [employer] [id number] 04/18/20241950 / [id number] Procedures Procedure Name Priority Date/Time Associated Diagnosis Comments MAMMO 3D EDUAR DIAGNOSTIC BILAT W OR WO CAD Routine 01/04/2021 9:47 AM TOLL COLLECTOR Malignant neoplasm of upper-outer quadrant of left [...] W OR WO CAD (01/04/2021 9:47 AM TOLL COLLECTOR) Anatomical Region Laterality Modality Breast Bilateral Mammography 01/04/2021 9:47 AM TOLL COLLECTOR Impressions 01/04/2021 10:46 AM TOLL COLLECTOR IMPRESSION: 1. No concerning abnormality identified. OVERALL FINAL ASSESSMENT: BI-RADS CATEGORY 2 - Benign findings. RECOMMENDATION: 1. Recommend annual mammography with tomosynthesis. Narrative 01/04/2021 10:46 AM TOLL COLLECTOR BILATERAL DIAGNOSTIC DIGITAL MAMMOGRAM WITH TOMOSYNTHESIS AND CAD DATE: 01/04/2021 9:47 AM DICTATION LOCATION: [facility] HISTORY: History of benign [...] CAD DATE: 01/04/2021 9:47 AM DICTATION LOCATION: [facility] HISTORY: History of benign [...] OR MORE SITES Dictated from Location 1 ([facility]) HISTORY: 57 yo F with postmenopausal symptoms on calcium supplementation with a history of breast carcinoma needing evaluation for osteoporosis. PROCEDURE: Using a [employer] dual energy x-ray absorptiometry system, the patient's [...] OR MORE SITES Dictated from Location 1 ([facility]) HISTORY: 57 yo F with postmenopausal symptoms on calcium supplementation with a history of breast carcinoma needing evaluation for osteoporosis. PROCEDURE: Using a [employer] dual energy x-ray absorptiometry system, the patient's [...] on file Payer ID:Not on file Group ID:[id number] Type:RX Commercial Address: [address] Advance Directives For more information, please contact: [phone] * Full Code (Latest Code Status on File) Date Activated Date Inactivated Comments 10/30/2011 8:48 AM 10/30/2011 5:02 PM * Full Code Date Activated Date Inactivated Comments 10/30/2011 8:40 AM 10/30/2011 8:48 AM Care Teams Reproduction Machine Loader Relationship Specialty Start Date End Date Jay Peraza MD [address] [place] [address] PCP - General Internal Medicine 10/30/11
--- OUTSIDE RECORDS SUMMARY | 2024-09-23 10:19 | XMS_ITS | Clinical Summary ---
Author Organization [facility] Address [facility] [place] [address] Care Team Providers Care Senior Back End Java Developer Name Role Phone Jay Peraza MD Primary [...] patient's age to complete this topic Insurance [facility] Care Teams Senior Back End Java Developer Relationship Specialty Start Date End Date Jay Peraza MD PCP - General INTERNAL MEDICINE 10/08/19
== END 2024-09-23 09:50 | disposition home or self-care (01) ==
PROVIDERS: PCP Physician Assistant Medical; Visit Provider Nurse Practitioner Family
DX: R11.2 Nausea with vomiting, unspecified (principal); K21.9 Gastro-esophageal reflux disease without esophagitis; K44.9 Diaphragmatic hernia without obstruction or gangrene
CPT/HCPCS: 74246

== ENCOUNTER 2024-10-16 07:45 | Outpatient (CLI) | payer MEDICARE, SELFPAY ==
--- NOTE | ~2024-10-16 | CT_ITS ---
EXAMINATION: CT abdomen pelvis w con, 10/16/2024 8:02 CDT HISTORY: density in the upper abd between stomach/colon COMPARISON: No comparisons available. TECHNIQUE: CT scan of the abdomen and pelvis was performed with contrast. Isovue 300, 92cc injected IV. One or more of the following dose reduction techniques were used: automated exposure control, adjustment of the mA and/or kV according to patient size, use of iterative reconstruction technique. Unless otherwise stated, incidental findings do not require dedicated follow up imaging FINDINGS: CT abdomen: LUNG BASES: The lung bases are clear. The visualized portions of the heart and pericardium are unremarkable. LIVER: Moderate hepatic steatosis. SPLEEN: Unremarkable, no splenomegaly. KIDNEYS: Right Kidney: Unremarkable. No calculi. No hydronephrosis. Left Kidney: Unremarkable. No calculi. No hydronephrosis ADRENAL GLANDS: Unremarkable. PANCREAS: Unremarkable. GALLBLADDER/BILIARY: Unremarkable. No biliary dilatation. STOMACH AND ESOPHAGUS: Visualized stomach and esophagus within normal limits. BOWEL/MESENTERY: Moderate fecal content, mild diverticulosis, no colitis or diverticulitis. Appendix normal. Mesentery normal. Small bowel normal. ADENOPATHY/RETROPERITONEUM: No lymphadenopathy. AORTA/VASCULATURE: Normal caliber aorta. FREE FLUID OR FREE AIR: No free fluid.. CT pelvis: SOLID ORGANS/REPRODUCTIVE: Status post hysterectomy. No adnexal mass. BLADDER: Within normal limits. OSSEOUS STRUCTURES: No acute osseous abnormality.No suspicious lesions. OVERLYING SOFT TISSUES: Unremarkable. IMPRESSION: 1. No etiology identified to explain the patient's symptoms. Follow-up suggested if symptoms persist. Reviewed, dictated and finalized at location A. IMPRESSION: 1. No etiology identified to explain the patient's symptoms. Follow-up suggeste d if symptoms persist.
--- OUTSIDE RECORDS SUMMARY | 2024-10-16 07:48 | XMS_ITS | Clinical Summary ---
Author Organization [facility] [place] Address [address] [place] [address] Phone Care Team Providers Care Ecological Modeler Name Role Phone Jay Peraza MD Primary Care Provider [phone] Allergies Active Allergy Reactions Criticality Noted Date [...] Peraza MD Referring Provider: Divine Culp MD [address] [place] [address] Other: Problem Noted Date Diagnosed Date Open wound of left breast 01/29/2020 Abscess of left breast 01/08/2020 Abnormality of right breast on screening mammogr am 01/08/2020 S/P BRETT-BSO 12/04/2011 Overview (12/04/2011): Fibroids Breast cancer Stage I ( T1c N0 Mx) IDC LEFT breast ER 8/8 [place] 8/8 HER2/israel - Ki67 21% 10/11/2011 Overview (12/06/2012): 10/06/11 Stage I ( T1c N0 Mx) IDC LEFT breast ER 8/8 [place] 8/8 HER2/israel - Ki67 21% S/p lumpectomy [...] f/u [facility]EM[facility] today Oncotype Weds BMD ordered ([facility]) Acid reflux Bulging disc Mart [...] on file Legal Sex Female 6:10 AM RIM BUSTER Gender Identity Not on file Sexual Orientation Not on file 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 on file Not on file Last Filed Vital Signs Vital Sign Reading Time Taken Comments Blood Pressure 108/68 01/04/2021 11:50 AM RIM BUSTER Pulse 95 01/30/2020 6:11 PM RIM BUSTER Temperature 36.4 C (97.5 F) 01/30/2020 6:11 PM RIM BUSTER Respiratory Rate 16 01/30/2020 6:11 PM RIM BUSTER Oxygen Saturation 94% 01/30/2020 6:11 PM RIM BUSTER Inhaled Oxygen Concentration - - Weight 68.5 kg (151 lb) 01/04/2021 11:50 AM RIM BUSTER Height 152.4 cm (5') 01/04/2021 11:50 AM RIM BUSTER Body Mass Index 29.49 01/04/2021 11:50 AM RIM BUSTER Plan of Treatment Health Maintenance Due Date [...] series) 10/25/2031 Medical Devices Implanted Type Area Concrete Gun Operator Device Identifier Shelf Expiration Date Model / Serial / Lot Hemostatic Surgicel 2x14in 1949 - [id number] Implanted:Qty : 1 on 01/30/2020 by Julia Lawler MD at [facility] Left: Breast [employer] [id number] 04/18/20241949 / [id number] Procedures Procedure Name Priority Date/Time Associated Diagnosis Comments MAMMO 3D EDUAR DIAGNOSTIC BILAT W OR WO CAD Routine 01/04/2021 9:47 AM RIM BUSTER Malignant neoplasm of upper-outer quadrant of left [...] W OR WO CAD (01/04/2021 9:47 AM RIM BUSTER) Anatomical Region Laterality Modality Breast Bilateral Mammography 01/04/2021 9:47 AM RIM BUSTER Impressions 01/04/2021 10:46 AM RIM BUSTER IMPRESSION: 1. No concerning abnormality identified. OVERALL FINAL ASSESSMENT: BI-RADS CATEGORY 2 - Benign findings. RECOMMENDATION: 1. Recommend annual mammography with tomosynthesis. Narrative 01/04/2021 10:46 AM RIM BUSTER BILATERAL DIAGNOSTIC DIGITAL MAMMOGRAM WITH TOMOSYNTHESIS AND CAD DATE: 01/04/2021 9:47 AM DICTATION LOCATION: [facility] HISTORY: History of benign breast [...] CAD DATE: 01/04/2021 9:47 AM DICTATION LOCATION: [facility] HISTORY: History of benign breast [...] OR MORE SITES Dictated from Location 1 ([facility]) HISTORY: 57 yo F with postmenopausal symptoms on calcium supplementation with a history of breast carcinoma needing evaluation for osteoporosis. PROCEDURE: Using a [employer] dual energy x-ray absorptiometry system, the patient's [...] OR MORE SITES Dictated from Location 1 ([facility]) HISTORY: 57 yo F with postmenopausal symptoms on calcium supplementation with a history of breast carcinoma needing evaluation for osteoporosis. PROCEDURE: Using a [employer] dual energy x-ray absorptiometry system, the patient's [...] Most Recently Relevant to Health Maintenance Insurance OPTIONS PPO [id number] RX [employer] RX Member Subscriber Plan / Payer (Ef fective 2020-Present) Name:Digna Healy Relation to Subscriber:Not on file Name:Digna Healy Subscriber ID:Not on file Payer ID:Not on file Group ID:[id number] Type:RX Commercial Address: [address] Advance Directives For more information, please contact: [phone] * Full Code (Latest Code Status on File) Date Activated Date Inactivated Comments 10/30/2011 8:48 AM 10/30/2011 5:02 PM * Full Code Date Activated Date Inactivated Comments 10/30/2011 8:40 AM 10/30/2011 8:48 AM Care Teams Ecological Modeler Relationship Specialty Start Date End Date Jay Peraza MD [facility] [place] [address] PCP - General Internal Medicine 10/30/11
--- OUTSIDE RECORDS SUMMARY | 2024-10-16 07:49 | XMS_ITS | Clinical Summary ---
Author Organization [facility] Address [facility] [place] [address] Care Team Providers Care Chain Saw Operator Name Role Phone Jay Peraza MD [...] patient's age to complete this topic Insurance [facility] Care Teams Chain Saw Operator Relationship Specialty Start Date End Date Jay Peraza MD PCP - General INTERNAL MEDICINE 10/08/19
[2024-10-16 08:09] LABS: Estimated Glomerular Filt Rate > 60
== END 2024-10-16 07:46 | disposition home or self-care (01) ==
PROVIDERS: PCP Physician Assistant Medical; Visit Provider Nurse Practitioner Family
DX: R19.00 Intra-abdominal and pelvic swelling, mass and lump, unspecified site (principal)
CPT/HCPCS: 74177; Q9967